=== PATIENT | female | born 1950 | race Caucasian/White ===

== ENCOUNTER 2021-03-21 08:54 | Outpatient (REF) | payer BC, SELFPAY ==
[2021-03-21 11:34] LABS: Glucose Urine UA NEG (NEG); Leukocyte Esterase Urine NEG (NEG); Nitrite Urine NEG (NEG); Urine Blood NEG (NEG); Urine Ketones NEG (NEG); Urine Protein NEG (NEG-TRACE)
[2021-03-21 11:38] LABS: Hematocrit 40.7 % (37-47); Hemoglobin 13.4 g/dl (12.0-16.0); Mean Corpuscular HGB Conc 32.9 g/dl (31.0-35.0); Mean Corpuscular Hemoglobin 30.2 pg (27.0-33.0); Mean Corpuscular Volume 91.9 fL (80-98); Mean Platelet Volume 9.6 fL (9.4-12.3); Platelet Count 258 X10*3/uL (160-400); Red Blood Count 4.43 X10*6/uL (4.20-5.50); Red Cell Distribution Width 13.7 % (11.0-16.0)
[2021-03-21 11:39] LABS: Appearance Urine CLEAR; Color Urine YELLOW
[2021-03-21 11:50] LABS: Alanine Aminotransferase 11 U/L (0-31); Albumin Level 3.9 g/dL (3.5-5.0); Alkaline Phosphatase 64 U/L (39-117); Anion Gap 12 (12-20); Aspartate Amino Transferase 16 U/L (5-31); Bilirubin Total 0.5 mg/dL (0.0-1.0); Blood Urea Nitrogen 19 mg/dL (9-16); Calcium 9.3 mg/dL (8.4-10.2); Carbon Dioxide 27 mmol/L (22-29); Chloride 104 mmol/L (96-108); Cholesterol 229 mg/dL; Estimated Glomerular Filt Rate > 60; Glucose Fasting 89 mg/dL (60-99); HDL Cholesterol 101 mg/dL; LDL Cholesterol Calculated 118 mg/dl; Potassium 4.6 mmol/L (3.3-5.1); Sodium 138 mmol/L (135-145); Total Protein 6.9 g/dL (6.5-8.0); Triglycerides 53 mg/dL
[2021-03-21 12:03] LABS: TSH reflex Free T4 0.93 uIU/mL (0.32-4.0)
[2021-03-21 13:17] LABS: RBC Urine 0 /HPF (0); Squamous Epithelial Cell Urine 1+ /LPF; WBC Urine 0 /HPF (0-4)
== END 2021-03-21 08:55 | disposition home or self-care (01) ==
LOC: HO.HMGCLDS 08:54
PROVIDERS: PCP Internal Medicine; Visit Provider Internal Medicine
DX: E78.5 Hyperlipidemia, unspecified (principal); I10 Essential (primary) hypertension
CPT/HCPCS: 36415; 80053; 80061; 81001; 84443; 85027

== ENCOUNTER 2021-11-25 07:19 | Outpatient (REF) | payer BC, SELFPAY ==
--- NOTE | ~2021-11-25 | MM_ITS ---
EXAMINATION: MM SCREENING DIGITAL BREAST TOMOSYNTHESIS, BILATERAL CLINICAL INFORMATION: Screening. Asymptomatic. The lifetime risk of breast cancer based on the Tyrer-Cuzick Model is 3%. COMPARISON: Mammography: 09/14/2017, 09/20/2013 TECHNIQUE: Digital breast tomosynthesis is performed in both the craniocaudal and mediolateral oblique views along with computer-aided detection (CAD). Synthesized 2D images are generated from the tomosynthesis. FINDINGS: There are scattered areas of fibroglandular density (ACR BI-RADS breast composition Category b). There are no significant masses, abnormal calcifications, or other abnormalities. Parenchymal pattern is similar to prior studies. There is no developing density or architectural abnormality. The axilla and skin contours are unremarkable. No significant changes. MM/MM tomosynthesis screening BI IMPRESSION: No mammographic evidence of malignancy. ASSESSMENT: BI-RADS 1: Negative RECOMMENDATION: Routine annual mammography screening. This patient's information was entered into a reminder system with a target due date for their next mammogram.
== END 2021-11-25 07:20 | disposition home or self-care (01) ==
LOC: HO.MAMMO 07:19
PROVIDERS: PCP Internal Medicine; Visit Provider Internal Medicine
DX: Z12.31 Encounter for screening mammogram for malignant neoplasm of breast (principal)
CPT/HCPCS: 77063; 77067

== ENCOUNTER 2022-03-06 08:37 | Outpatient (REF) | payer BC, SELFPAY ==
[2022-03-06 12:00] LABS: Hematocrit 39.5 % (37.0-47.0); Mean Corpuscular HGB Conc 32.9 g/dl (31.0-35.0); Mean Corpuscular Hemoglobin 30.2 pg (27.0-33.0); Mean Corpuscular Volume 91.6 fL (80.0-98.0); Mean Platelet Volume 9.7 fL (9.4-12.3); Platelet Count 265 X10*3/uL (160-400); Red Blood Count 4.31 X10*6/uL (4.20-5.50); Red Cell Distribution Width 14.1 % (11.0-16.0); White Blood Count 6.1 X10*3/uL (4.8-10.8)
[2022-03-06 12:03] LABS: Alanine Aminotransferase 14 U/L (0-31); Albumin Level 4.2 g/dL (3.5-5.0); Alkaline Phosphatase 69 U/L (39-117); Anion Gap 14 (12-20); Aspartate Amino Transferase 20 U/L (5-31); Bilirubin Total 0.7 mg/dL (0.0-1.0); Blood Urea Nitrogen 19 mg/dL (9-16); Calcium 9.3 mg/dL (8.4-10.2); Carbon Dioxide 23 mmol/L (22-29); Chloride 100 mmol/L (96-108); Cholesterol 253 mg/dL; Estimated Glomerular Filt Rate > 60; Glucose Fasting 103 mg/dL (60-99); HDL Cholesterol 118 mg/dL; LDL Cholesterol Calculated 125 mg/dl; Potassium 4.4 mmol/L (3.3-5.1); Sodium 133 mmol/L (135-145); Total Protein 7.3 g/dL (6.5-8.0); Triglycerides 53 mg/dL
[2022-03-06 12:05] LABS: TSH reflex Free T4 1.78 uIU/mL (0.32-4.0); Vitamin D 25-OH Total 6.9 ng/mL (>30)
== END 2022-03-06 08:38 | disposition home or self-care (01) ==
LOC: HO.HMGCLDS 08:37
PROVIDERS: PCP Internal Medicine; Visit Provider Internal Medicine
DX: Z00.00 Encounter for general adult medical examination without abnormal findings (principal); I10 Essential (primary) hypertension; E78.5 Hyperlipidemia, unspecified
CPT/HCPCS: 36415; 80053; 80061; 82306; 84443; 85027

== ENCOUNTER 2022-05-01 07:42 | Outpatient (REF) | payer BC, SELFPAY ==
[2022-05-01 11:57] LABS: Anion Gap 13 (12-20); Blood Urea Nitrogen 24 mg/dL (9-16); Calcium 9.8 mg/dL (8.4-10.2); Carbon Dioxide 24 mmol/L (22-29); Chloride 102 mmol/L (96-108); Estimated Glomerular Filt Rate > 60; Glucose Random 100 mg/dL (60-115); Potassium 5.1 mmol/L (3.3-5.1); Sodium 134 mmol/L (135-145)
[2022-05-01 12:01] LABS: Vitamin D 25-OH Total 37.4 ng/mL (>30)
== END 2022-05-01 07:43 | disposition home or self-care (01) ==
LOC: HO.HMGCLDS 07:42
PROVIDERS: PCP Internal Medicine; Visit Provider Internal Medicine
DX: E55.9 Vitamin D deficiency, unspecified (principal); I10 Essential (primary) hypertension
CPT/HCPCS: 36415; 80048; 82306

== ENCOUNTER 2022-05-06 13:23 | Outpatient (REF) | payer BC, SELFPAY ==
--- NOTE | ~2022-05-06 | MM_ITS ---
EXAMINATION: BONE DENSITOMETRY CLINICAL INDICATION: Age-related osteoporosis without current pathological fracture. COMPARISON: Baseline BD dated 07/21/2017. TECHNIQUE: Using a [employer] DXA System (software version: 13.1) manufactured by [employer], dual-energy x-ray absorptiometry was performed of the lumbar spine and left hip. The images are of good technical quality. Summary results are attached. FINDINGS: AP SPINE L1-L2 (excluding L3 and L4): The data of L1-L4 has been changed to exclude the L3 and L4 vertebral bodies, because degenerative sclerosis at these levels may cause overestimation of lumbar spine density. Current: BMD 0.980 g/cm2, Z-score -0.1, T-score -1.5, osteopenia, 3.0% decrease from baseline (<5% change is not significant). Baseline: BMD 1.010 g/cm2. LEFT FEMUR, NECK: Current: BMD 0.705 g/cm2, Z-score -0.8, T-score -2.4, osteopenia. Baseline: BMD 0.786 g/cm2. LEFT FEMUR, TOTAL: Current: BMD 0.760 g/cm2, Z-score -0.6, T-score -2.0, osteopenia, 7.5% decrease from baseline (<5% change is not significant). Baseline: BMD 0.822 g/cm2. IDENTIFIED RISK FACTORS: Early menopause, secondary osteoporosis, height loss. HISTORY OF FRACTURE: None listed. MEDICATIONS: Vitamin D. MM/XR DEXA axial skeleton IMPRESSION: 1. DIAGNOSIS: Osteopenia based on the lowest T-score value of -2.4 in the femoral neck applying World Health Organization criteria. 2. 10-YEAR FRACTURE RISK PREDICTION, FRAX: Major osteoporotic fracture (clinical spine, forearm, hip or shoulder) 14.1%. Hip fracture 3.5%. 3. Treatment Recommendations: NOF guidelines recommend consideration for treatment in postmenopausal women and men age 50 and older presenting with the following: -A hip or vertebral (clinical or morphometric) fracture. -T-score less than or equal to -2.5 at the femoral neck or spine after appropriate evaluation to exclude secondary causes. -Low bone mass at the hip or spine and a 10-year fracture probability by FRAX of greater than or equal to 3% for hip fracture or greater than or equal to 20% for major osteoporotic fracture based on the [place] adapted WHO algorithm. 4. Other Recommendations: All treatment decisions require clinical judgment and consideration of individual patient factors, including patient preferences, comorbidities, previous drug use, risk factors not captured in the FRAX model (e.g. frailty, falls, vitamin D deficiency, increased bone turnover, interval significant decline in bone density) and possible under or overestimation of fracture risk by FRAX. Additional medical evaluation for secondary cause of low bone mineral density may be appropriate. FUTURE SCAN RECOMMENDATION: People with diagnosed cases of osteoporosis or at high risk for fracture should have regular bone mineral density tests. For patients eligible for Medicare, routine testing is allowed once every 2 years. The testing frequency can be increased to one year for patients who have rapidly progressing disease, those who are receiving or discontinuing medical therapy to restore bone mass, or have additional risk factors.
== END 2022-05-06 13:24 | disposition home or self-care (01) ==
LOC: HO.MAMMO 13:23
PROVIDERS: PCP Internal Medicine; Visit Provider Internal Medicine
DX: Z13.820 Encounter for screening for osteoporosis (principal); Z78.0 Asymptomatic menopausal state; M85.80 Other specified disorders of bone density and structure, unspecified site; M81.0 Age-related osteoporosis without current pathological fracture
CPT/HCPCS: 77080

== ENCOUNTER 2024-01-09 06:39 | Outpatient (REF) | payer MEDICARE, SELFPAY ==
[2024-01-09 11:00] LABS: MANUAL DIFF FLAG NO
[2024-01-09 11:04] LABS: Basophils Absolute Auto 0.1 X10*3/uL (0.0-0.2); Basophils Percent Auto 1.1 % (0-2); Eosinophils Absolute Auto 0.1 X10*3/uL (0.0-0.4); Eosinophils Percent Auto 2.5 % (0-4); Hematocrit 40.3 % (37.0-47.0); Hemoglobin 13.4 g/dl (12.0-16.0); Imm Gran Abs Auto 0.01 X10*3/uL (0.00-0.03); Imm Gran Pct Auto 0.2 % (0.0-0.4); Lymphocytes Absolute Auto 1.3 X10*3/uL (1.2-4.9); Lymphocytes Percent Auto 30.6 % (20-40); Mean Corpuscular HGB Conc 33.3 g/dl (31.0-35.0); Mean Corpuscular Hemoglobin 30.4 pg (27.0-33.0); Mean Corpuscular Volume 91.4 fL (80.0-98.0); Mean Platelet Volume 10.4 fL (9.4-12.3); Monocytes Absolute Auto 0.4 X10*3/uL (0.1-1.2); Monocytes Percent Auto 9.9 % (2-11); Neutrophils Absolute Auto 2.4 x10*3/uL (2.0-8.3); Neutrophils Percent Auto 55.7 % (45-73); Platelet Count 231 X10*3/uL (160-400); Red Blood Count 4.41 X10*6/uL (4.20-5.50); Red Cell Distribution Width 13.4 % (11.0-16.0); White Blood Count 4.4 X10*3/uL (4.8-10.8)
[2024-01-09 11:25] LABS: Alanine Aminotransferase 12 U/L (0-31); Albumin Level 3.8 g/dL (3.5-5.0); Alkaline Phosphatase 60 U/L (39-117); Anion Gap 11 (12-20); Aspartate Amino Transferase 16 U/L (5-31); Bilirubin Total 0.4 mg/dL (0.0-1.0); Blood Urea Nitrogen 15 mg/dL (9-16); Calcium 9.3 mg/dL (8.4-10.2); Carbon Dioxide 27 mmol/L (22-29); Chloride 102 mmol/L (96-108); Cholesterol 282 mg/dL (<200); Estimated Glomerular Filt Rate > 60; Glucose Fasting 93 mg/dL (60-99); HDL Cholesterol 107 mg/dL (>40); LDL Cholesterol Calculated 162 mg/dL (<100); Potassium 4.3 mmol/L (3.3-5.1); Sodium 136 mmol/L (135-145); Total Protein 7.1 g/dL (6.5-8.0); Triglycerides 65 mg/dL (<150)
[2024-01-09 11:41] LABS: TSH reflex Free T4 1.72 uIU/mL (0.32-4.0); Vitamin D 25-OH Total 20.5 ng/mL (>30)
== END 2024-01-09 06:40 | disposition home or self-care (01) ==
LOC: HO.HMGCLDS 06:39
PROVIDERS: PCP Internal Medicine; Visit Provider Internal Medicine
DX: E55.9 Vitamin D deficiency, unspecified (principal); E78.5 Hyperlipidemia, unspecified; I10 Essential (primary) hypertension
CPT/HCPCS: 36415; 80053; 80061; 82306; 84443; 85025

== ENCOUNTER 2024-01-14 08:54 | Outpatient (AMB) | payer MEDICARE, SELFPAY ==
[2024-01-14 08:56] VITALS: BP 136/84; PULSE 75; O2SAT 96; BMI 28.4
--- NOTE | 2024-01-14 08:56 | MHC.PC.OV ---
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 Avila Gerber, Katie Farias, Fazal Mcfadden and colleagues, with an educational bonnie from [employer]. Physical exam (Primary Care) Tobacco/Smoking Status: Tobacco use Status Tobacco use date assessed 03/11/22 03/11/22 12:02 Patient Tobacco Use Status Never used Tobacco 03/11/22 12:02 e-Cigarette/Vaping Use Never Used 03/11/22 12:02 Thrive Assessment: Date of Thrive Assessment Date Thrive assessed 03/11/22 03/11/22 12:02 Coding
--- NOTE | 2024-01-14 08:57 | AM.OFFVISMDC ---
Intake Vital Signs 01/14/24 08:56 Height 5 ft 2.5 in Weight 158 lb BMI 28.4 BP 136/84 Blood Pressure Location Rt brachial Position Sitting Pulse 75 Pulse Source Pulse Oximeter Pulse Oximetry (%) 96 Oxygen Delivery Method Room Air Intake Visit Reasons: AWV Allergies No Known Allergies Allergy (Verified 01/14/24 08:57) Medication List - Last Reconciled 01/14/24 by Kami Hicks MD lisinopril 10 mg PO DAILY HPI AWV HPI Details Patient presents for annual visit. She stopped taking statin and blood pressure medication a year ago and her daughter who is a nurse has been checking her blood pressure with the readings between 125/80 or less. Patient denies chest pain shortness for breath and has been physically active at this twice a day with a brisk walking. She complains of right buttock pain when sitting for longer time on and off for few months. Patient denies any pain radiating to right lower extremity, weakness in extremities change in bowel or bladder function. Initiated the conversation about Advanced Directives. Advanced Directives help? patients prepare for current and future decisions about their medical treatment? and place of care. Discussed with patient that it is a process where a patients? current condition and prognosis are reviewed, their wishes for information? regarding their illness are elicited, and likely medical dilemmas are presented? and options discussed. The form can be amended as needed, reviewed yearly and? make changes as needed IPPE/AWV ? year old presents? for her ? Annual? Wellness Visit, initial visit.? Medical / Social History Reviewed? Past Medical History ?Yes? . ? [place]? of Care / Care Team list updated ?Yes . ? Surgical/Hospitalization? History ?Yes . ? Current Medications? (including OTC and supplements) ?Yes . ? Family History ?Yes? . ? Tobacco? Control form ?Yes . ? AUDIT-C (Alcohol use) form? ?Yes . ? Illicit drug use in Social? History ?Yes . ? Current diagnosis of? depression? ?No ? Appropriate PHQ2/PHQ9? completed ?Yes . ? Data entered by ?Medical? [employer] and reviewed by provider ? Fall Risk ? Fall? History? Have you had any falls with? injury in the past year? ?No . ? Have you had two or more? falls in the past year? ?No . ? Fall Risk Assessment: ?No? falls in the past year . ? HRA filled out by? the patient, reviewed by Provider and scanned. ? IPPE/AWV ? Balance? Romberg? ?Yes . ? Tandem? walk ?Yes . ? Walk and? Turn ?Yes . ? Rise from? sit to stand ?Yes . ?Vision? Corrective? lens ?Yes ? Vision? screen ? Up-to-date, has an appointment [] for vision? screening and glaucoma screening ?Hearing? Whisper? test ?pass .? Initiated the conversation about Advanced Directives. Advanced Directives help? patients prepare for current and future decisions about their medical treatment? and place of care. Discussed with patient that it is a process where a patients? current condition and prognosis are reviewed, their wishes for information? regarding their illness are elicited, and likely medical dilemmas are presented? and options discussed. The form can be amended as needed, reviewed yearly and? make changes as needed Written? Plan?Completed. See Patient? Documents. [facility], [facility] Medical History (Updated 01/14/24 @ 09:47 by Kami Hicks MD) Osteoporosis Vitamin D deficiency Annual physical exam Normal Pap smear Hyperlipemia HTN (hypertension) Surgical History H/O colonoscopy Family History (Updated 01/14/24 @ 09:02 by Maria Esther Graves [facility]) Father No problems noted. Mother No problems noted. 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 (1st repeat determines score. Make sure they can repeat all three): object 1, object 2 and object 3 Attention & Calculation (CHOOSE ONE) Spell WORLD backwards (DLROW): 5 letters Recall Ask patient to repeat the 3 items from question #3.: object 1, object 2 and object 3 Language Show patient a wristwatch & ask what it is. Repeat for pencil.: watch and pencil Ask the patient to repeat the phrase 'No ifs, ands, or buts' after you.: correct Ask the patient to 'take a piece of paper with their right hand' 'fold paper in half' 'place paper on floor': take paper in right hand, fold paper in half and place paper on floor Print the sentence 'CLOSE YOUR EYES' on a piece. If patient actually closes eyes then score.: followed written direction Give patient a blank piece of paper & ask to write a sentence. Score if it contains a noun & verb.: sentence contains subject and verb Score Score: 29 Review of Systems Const All systems reviewed & are unremarkable except as noted in HPI and below Reports no additional complaints Eyes Reports no additional complaints ENT Reports no additional complaints Card Reports no additional complaints Resp Reports no additional complaints GI Reports no additional complaints Reports no additional complaints Physical Exam Vital Signs: Last Vital Signs Pulse 75 01/14/24 08:56 BP 136/84 01/14/24 08:56 Pulse Ox 96 01/14/24 08:56 Oxygen Delivery Method Room Air 01/14/24 08:56 BMI result Body Mass Index 28.4 Const General: no acute distress HEENT Head: Yes normal to inspection Ears: hearing grossly normal bilaterally Neck Neck: Yes no lymphadenopathy and Yes supple Resp Effort & Inspection: normal respiratory effort Auscultation: clear to auscultation bilaterally Cardio Rhythm: regular rhythm Heart sounds: S1 normal heart sound present and S2 normal heart sound present GI Inspection: Yes normal to inspection Palpation (GI): Soft to palpation Percussion: Yes normal to percussion Auscultation: normal bowel sounds Extrem Other: There is a weaker to palpation left radial artery pulse General: Yes no clubbing, cyanosis or edema Assessment & Plan Assessment & Plan (1) Hyperlipemia: Code(s): E78.5 - Hyperlipidemia, unspecified Plan: Patient will restart atorvastatin 20 mg a day and have lipid profile in 2 months (2) HTN (hypertension): Code(s): I10 - Essential (primary) hypertension Plan: For hypertension she will restart lisinopril 10 mg, low-sodium diet regular physical activity discussed with the patient. Follow-up in 2 months (3) Vitamin D deficiency: Code(s): E55.9 - Vitamin D deficiency, unspecified Plan: Start vitamin-D supplement 2000 units and monitor the level (4) Piriformis syndrome of right side: Code(s): G57.01 - Lesion of sciatic nerve, right lower limb Plan: Referred to physical therapy (5) Radial artery stenosis: Comment: DECREASED LEFT RADIAL ARTERY PULSE Code(s): I77.1 - Stricture of artery Plan: Obtain left upper extremity Doppler to evaluate for radial artery stenosis (6) Annual physical exam: Comment: Negative Cologuard 11/21, mammogram scheduled 01/23, patient declined immunization Code(s): Z00.00 - Encounter for general adult medical examination without abnormal findings Plan: Well-balanced diet regular physical activity discussed with the patient Orders: Orders Lipid Panel 2 Months E55.9 - Vitamin D deficiency, unspecified, E78.5 - Hyperlipidemia, unspecified, I10 - Essential (primary) hypertension, M85.80 - Other specified disorders of bone density and structure, unspecified site MM screening mammo BI Today Z12.31 - Encounter for screening mammogram for malignant neoplasm of breast US arterial duplex UE LT Today I77.1 - Stricture of artery Comprehensive [place]. Panel Fast 2 Months E55.9 - Vitamin D deficiency, unspecified, E78.5 - Hyperlipidemia, unspecified, I10 - Essential (primary) hypertension, M85.80 - Other specified disorders of bone density and structure, unspecified site Vitamin D 25-OH Total 2 Months E55.9 - Vitamin D deficiency, unspecified, E78.5 - Hyperlipidemia, unspecified, I10 - Essential (primary) hypertension, M85.80 - Other specified disorders of bone density and structure, unspecified site PT Evaluation and Treatment Today G57.01 - Lesion of sciatic nerve, right lower limb Medications: New lisinopril 10 mg PO DAILY 90 tabs 0RF atorvastatin 20 mg PO BEDTIME 90 tabs 0RF Coding Level of Care Code Medicare Subsequent (G0439) Diagnoses Hyperlipemia E78.5 HTN (hypertension) I10 Vitamin D deficiency E55.9 Piriformis syndrome of right side G57.01 Radial artery stenosis I77.1 Annual physical exam Z00.00 CPT Codes Advance Care Planning - Time spent: 1-15 minutes, not on file ([id number]) Advance Care Planning Advance Care Planning discussion: Exists, not on file Forms completed: Health Care Proxy Time spent: 1-15 minutes, not on file
== END 2024-01-14 09:39 | disposition home or self-care (01) ==
PROVIDERS: PCP Internal Medicine; Visit Provider Internal Medicine
DX: Z00.00 Encounter for general adult medical examination without abnormal findings (principal); E78.5 Hyperlipidemia, unspecified; I77.1 Stricture of artery; I10 Essential (primary) hypertension; E55.9 Vitamin D deficiency, unspecified; G57.01 Lesion of sciatic nerve, right lower limb
CPT/HCPCS: 1124F; G0402; G0439

== ENCOUNTER 2024-02-09 09:39 | Outpatient (REF) | payer MEDICARE, SELFPAY ==
--- NOTE | ~2024-02-09 | US_ITS ---
EXAMINATION: Noninvasive assessment of the left upper extremity with ARTERIAL DUPLEX. CLINICAL INFORMATION: Stricture of the artery TECHNIQUE: Duplex Doppler techniques with waveform analysis and measurement of velocities in the left subclavian, axillary, brachial, radial and ulnar arteries were performed. COMPARISON: None FINDINGS: DIRECT DUPLEX DOPPLER FINDINGS: LEFT ARM: Subclavian artery (proximal): 113 cm/s, phasicity: Triphasic Subclavian artery (mid): 111 cm/s, phasicity: Triphasic Subclavian artery (distal): 91.8 cm/s, phasicity: Triphasic Axillary artery: 122 cm/s, phasicity: Biphasic Brachial artery (proximal): 98.2 cm/s, phasicity: Biphasic Brachial artery (mid): 144 cm/s, phasicity: Biphasic Brachial artery (distal): 115 cm/s, phasicity: Biphasic Radial artery: 68.5 cm/s, phasicity: Biphasic Ulnar artery: 55.3 cm/s, phasicity:Biphasic US/US arterial duplex UE LT IMPRESSION: Normal duplex arterial ultrasound of the left upper extremity
== END 2024-02-09 09:40 | disposition home or self-care (01) ==
LOC: HO.US 09:39
PROVIDERS: PCP Internal Medicine; Visit Provider Internal Medicine
DX: I77.1 Stricture of artery (principal)
CPT/HCPCS: 93931

== ENCOUNTER 2024-02-15 11:30 | Outpatient (REF) | payer MEDICARE, SELFPAY ==
--- NOTE | ~2024-02-15 | MM_ITS ---
EXAMINATION: MM SCREENING DIGITAL BREAST TOMOSYNTHESIS, BILATERAL CLINICAL INFORMATION: Screening. Asymptomatic. COMPARISON: Mammography: 11/25/2021, 09/14/2017, 09/20/2013 TECHNIQUE: Digital breast tomosynthesis is performed in both the craniocaudal and mediolateral oblique views along with computer-aided detection (CAD). Synthesized 2D images are generated from the tomosynthesis. FINDINGS: There are scattered areas of fibroglandular density (ACR BI-RADS breast composition Category b). There are bilateral vascular calcifications. There are no suspicious masses, suspicious grouped calcifications, or areas of architectural distortion in either breast. The parenchymal pattern is stable from prior exams. MM/MM tomosynthesis screening BI IMPRESSION: No mammographic evidence of malignancy. ASSESSMENT: BI-RADS BI-RADS 2 - Benign Findings RECOMMENDATION: Routine annual mammography screening. 1 year F/U This examination should not preclude the clinical evaluation of a suspicious palpable abnormality. This patient's information was entered into a reminder system with a target due date for their next mammogram.
== END 2024-02-15 11:31 | disposition home or self-care (01) ==
LOC: HO.MAMMO 11:30
PROVIDERS: PCP Internal Medicine; Visit Provider Internal Medicine
DX: Z12.31 Encounter for screening mammogram for malignant neoplasm of breast (principal)
CPT/HCPCS: 77063; 77067

== ENCOUNTER → 2024-02-15 11:45 | Outpatient (BNV) | payer MEDICARE, SELFPAY | PROVIDERS: PCP Internal Medicine; Visit Provider Radiology Diagnostic Radiology | DX: Z12.31 Encounter for screening mammogram for malignant neoplasm of breast (principal) | CPT/HCPCS: 77063; 77067 ==

== ENCOUNTER 2024-04-02 06:36 | Outpatient (REF) | payer MEDICARE, SELFPAY ==
[2024-04-02 12:09] LABS: Alanine Aminotransferase 15 U/L (0-31); Albumin Level 4.2 g/dL (3.5-5.0); Alkaline Phosphatase 59 U/L (39-117); Anion Gap 14 (12-20); Aspartate Amino Transferase 19 U/L (5-31); Bilirubin Total 0.5 mg/dL (0.0-1.0); Blood Urea Nitrogen 22 mg/dL (9-16); Calcium 9.8 mg/dL (8.4-10.2); Carbon Dioxide 24 mmol/L (22-29); Chloride 101 mmol/L (96-108); Cholesterol 229 mg/dL (<200); Estimated Glomerular Filt Rate > 60; Glucose Fasting 91 mg/dL (60-99); HDL Cholesterol 101 mg/dL (>40); LDL Cholesterol Calculated 115 mg/dL (<100); Potassium 4.3 mmol/L (3.3-5.1); Sodium 135 mmol/L (135-145); Total Protein 7.7 g/dL (6.5-8.0); Triglycerides 68 mg/dL (<150)
[2024-04-02 12:27] LABS: Vitamin D 25-OH Total 47.3 ng/mL (>30)
== END 2024-04-02 06:37 | disposition home or self-care (01) ==
LOC: HO.HMGCLDS 06:36
PROVIDERS: PCP Internal Medicine; Visit Provider Internal Medicine
DX: E78.5 Hyperlipidemia, unspecified (principal); I10 Essential (primary) hypertension; E55.9 Vitamin D deficiency, unspecified; M85.80 Other specified disorders of bone density and structure, unspecified site
CPT/HCPCS: 36415; 80053; 80061; 82306

== ENCOUNTER 2024-04-05 11:01 | Outpatient (AMB) | payer MEDICARE, SELFPAY ==
--- NOTE | 2024-04-05 11:17 | MHC.PC.OV ---
Vital Signs 04/05/24 11:18 Height 5 ft 2.5 in Weight 158 lb BMI 28.4 BP 134/66 Blood Pressure Location Rt brachial Position Sitting Pulse 73 Pulse Source Pulse Oximeter Pulse Oximetry (%) 99 Oxygen Delivery Method Room Air Intake Visit Reasons: 3M F/U US Intake Note: Pt is here today for 3 months follow up on labs. Allergies No Known Allergies Allergy (Verified 04/05/24 11:18) Medication List - Last Reconciled 04/05/24 by Kami Hicks MD atorvastatin 20 mg PO BEDTIME lisinopril 20 mg PO DAILY Tobacco use date assessed: 04/05/24 Fall risk assessment: No Falls in past year Last assessed Fall Risk: 04/05/24 Dental Screening Dental Screen Date: 04/05/24 Did you have a dental visit in the last 12 months?: Yes Did you have a dental problem in the last 6 months where you did not have access to dental care?: No Was dental information given to patient?: Patient has dentist HPI 3M F/U US HPI Details PATIENT PRESENTS FOR THE FOLLOW-UP OF HYPERTENSION HYPERLIPIDEMIA [facility] Medical History (Updated 04/05/24 @ 11:55 by Kami Hicks MD) Vitamin D deficiency Annual physical exam Normal Pap smear Hyperlipemia HTN (hypertension) Surgical History H/O colonoscopy Family History Father No problems noted. Mother No problems noted. 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 1. Little interest or pleasure in doing things: not at all 2. Feeling down, depressed, or hopeless: not at all 3. Trouble falling or staying asleep, or sleeping too much: not at all 4. Feeling tired or having little energy: not at all 5. Poor appetite or overeating: not at all 6. Feeling bad about yourself - or that you are a failure or have let yourself or your family down: not at all 7. Trouble concentrating on things, such as reading the newspaper or watching television: not at all 8. Moving or speaking so slowly that other people could have noticed. Or the opposite - being so fidgety or restless that you have been moving around a lot more than usual: not at all 9. Thoughts that you would be better off or of hurting yourself in some way: not at all Total score: 0 Depression Screening Interpretation: Negative Depression Screening Done: Yes Source: Developed by Drs. Avila Gerber, Katie Farias, Fazal Mcfadden and colleagues, with an educational bonnie from [employer]. Thrive Questionnaire Date Thrive assessed: 04/05/24 I am a: Patient What is your living situation today?: I have a steady place to live Within the past 12 months, did the food you bought not last and you didn't have the money to get more?: Never true Within the past 12 months, did you worry whether your food would run out before you got money to buy more?: Never true Do you have trouble paying for medicines?: No Do you have trouble getting transportation to medical appointments?: No Do you have trouble paying your heating and electricity bill?: No Do you have trouble taking care of your child, family member or friend?: No Do you have trouble with day-to-day activities such as bathing, preparing meals, shopping, managing finances, etc.?: No Are you currently unemployed and looking for a job?: No Are you interested in more education?: No Please select the resources that you would like help with: None THRIVE Score: 0 AUDIT C Alcohol Use Questionnaire (AUDIT-C) 1. How often do you have a drink containing alcohol?: 2-3 times a week 2. How many drinks containing alcohol do you have on a typical day when you are drinking?: 3 or 4 3. How often do you have six or more drinks on one occasion?: Less than monthly Total Score: 5 GEOVANNI-7 AMB Questionnaire GEOVANNI-7 Date GEOVANNI - 7 assessed: 04/05/24 Feeling nervous, anxious, or on edge: 0 = Not at all Not being able to stop or control worryin = Not at all Worrying too much about different things: 0 = Not at all Trouble relaxin = Not at all Being so restless that it is hard to sit still: 0 = Not at all Becoming easily annoyed or irritable: 0 = Not at all Feeling afraid as if something awful might happen: 0 = Not at all Total GEOVANNI-7 score (0-4 normal; 5-9 mild; 10-14 moderate; 15-21 severe): 0 Source: Developed by Drs. Avila Gerber, Katie Farias, Fazal Mcfadden and colleagues, with an educational bonnie from [email or web address]. Review of Systems Const All systems reviewed & are unremarkable except as noted in HPI and below ENT Reports no additional complaints Card Reports no additional complaints Resp Reports no additional complaints GI Reports no additional complaints Physical exam (Primary Care) Vital Signs: Last Vital Signs Pulse 73 04/05/24 11:18 BP 134/66 04/05/24 11:18 Pulse Ox 99 04/05/24 11:18 Oxygen Delivery Method Room Air 04/05/24 11:18 BMI result Body Mass Index 28.4 Tobacco/Smoking Status: Tobacco use Status Tobacco use date assessed 04/05/24 04/05/24 11:18 Patient Tobacco Use Status Never used Tobacco 04/05/24 11:18 e-Cigarette/Vaping Use Never Used 04/05/24 11:18 PHQ-9: PHQ-9 Score PHQ-9: Total score 0 04/05/24 11:28 Depression Screening Interpretation: Negative Thrive Assessment: Date of Thrive Assessment Date Thrive assessed 04/05/24 04/05/24 11:28 Const General: no acute distress HENMT Throat: Yes posterior oropharynx normal Eyes General: appearance normal, both eyes and all related structures Neck Neck: Yes supple Resp Effort & Inspection: normal respiratory effort Auscultation: clear to auscultation bilaterally Cardio Rhythm: regular rhythm Heart sounds: S1 normal heart sound present and S2 normal heart sound present GI Inspection: Yes normal to inspection Assessment and Plan Assessment & Plan (1) HTN (hypertension): Code(s): I10 - Essential (primary) hypertension Plan: Increase lisinopril to 20 mg a day check BMP in 2 weeks follow-up in 2 months (2) Osteopenia: Comment: DEXA 04/2022. T score -2.4 L femur neck, unchanged from 2019, recheck in 3 yrs Code(s): M85.80 - Other specified disorders of bone density and structure, unspecified site Plan: Continue vitamin-D supplement and weight-bearing exercises (3) Hyperlipemia: Code(s): E78.5 - Hyperlipidemia, unspecified Plan: Continue statin Orders: Orders Basic Metabolic Panel 2 Weeks I10 - Essential (primary) hypertension Medications: New lisinopril 20 mg PO DAILY 90 tabs 1RF Coding Level of Care Code Est Pt Level 4 (15463) Diagnoses HTN (hypertension) I10 Osteopenia M85.80 Hyperlipemia E78.5
[2024-04-05 11:18] VITALS: BP 134/66; PULSE 73; O2SAT 99; BMI 28.4
== END 2024-04-05 11:57 | disposition home or self-care (01) ==
PROVIDERS: PCP Internal Medicine; Visit Provider Internal Medicine
DX: I10 Essential (primary) hypertension (principal); M85.80 Other specified disorders of bone density and structure, unspecified site; E78.5 Hyperlipidemia, unspecified
CPT/HCPCS: 99214

== ENCOUNTER 2024-05-16 09:08 | Outpatient (REF) | payer MEDICARE, SELFPAY ==
[2024-05-16 10:40] LABS: Anion Gap 11 (12-20); Blood Urea Nitrogen 26 mg/dL (9-16); Carbon Dioxide 27 mmol/L (22-29); Chloride 100 mmol/L (96-108); Estimated Glomerular Filt Rate > 60; Glucose Random 109 mg/dL (60-115); Potassium 4.5 mmol/L (3.3-5.1); Sodium 133 mmol/L (135-145)
== END 2024-05-16 09:09 | disposition home or self-care (01) ==
LOC: HO.HMGCLDS 09:08
PROVIDERS: PCP Internal Medicine; Visit Provider Internal Medicine
DX: I10 Essential (primary) hypertension (principal)
CPT/HCPCS: 36415; 80048

== ENCOUNTER 2024-06-14 10:00 | Outpatient (AMB) | payer MEDICARE, SELFPAY ==
--- NOTE | 2024-06-14 10:07 | MHC.PC.OV ---
Vital Signs 06/14/24 10:09 Height 5 ft 2.5 in Weight 156 lb BMI 28.1 BP 138/82 Blood Pressure Location Rt brachial Position Standing Pulse 72 Pulse Source Pulse Oximeter Pulse Oximetry (%) 97 Oxygen Delivery Method Room Air Intake Visit Reasons: 2 month follow up Intake Note: Pt is here today for 2 months follow up visit. Allergies No Known Allergies Allergy (Verified 06/14/24 10:11) Medication List - Last Reconciled 06/14/24 by Kami Hicks MD atorvastatin 20 mg PO BEDTIME lisinopril 30 mg PO DAILY Tobacco use date assessed: 06/14/24 Fall risk assessment: No Falls in past year Last assessed Fall Risk: 06/14/24 Dental Screening Dental Screen Date: 04/05/24 HPI 2 month follow up HPI Details Patient presents for the follow-up on hypertension and hyperlipidemia. [facility] Medical History Vitamin D deficiency Annual physical exam Normal Pap smear Hyperlipemia HTN (hypertension) Surgical History H/O colonoscopy Family History Father No problems noted. Mother No problems noted. Social History Housing: House Alcohol intake: current Alcohol intake frequency: a few times a week Patient Tobacco Use Status: Never used Tobacco e-Cigarette/Vaping Use: Never Used Second Hand Smoke Exposure: No service: No Current occupational status: employed Current occupation: Caterer Current occupational exposures/hazards: No Cognitive needs: No Hearing needs: No Vision needs: No Questionnaire PHQ-9 Over the last 2 weeks, how often have you been bothered by any of the following problems? 1. Little interest or pleasure in doing things: not at all 2. Feeling down, depressed, or hopeless: not at all 3. Trouble falling or staying asleep, or sleeping too much: not at all 4. Feeling tired or having little energy: not at all 5. Poor appetite or overeating: not at all 6. Feeling bad about yourself - or that you are a failure or have let yourself or your family down: not at all 7. Trouble concentrating on things, such as reading the newspaper or watching television: not at all 8. Moving or speaking so slowly that other people could have noticed. Or the opposite - being so fidgety or restless that you have been moving around a lot more than usual: not at all 9. Thoughts that you would be better off or of hurting yourself in some way: not at all Total score: 0 Depression Screening Interpretation: Negative Depression Screening Done: Yes Source: Developed by Drs. Avila Gerber, Ktaie Farias, Fazal Mcfadden and colleagues, with an educational bonnie from [employer]. Thrive Questionnaire Date Thrive assessed: 06/14/24 I am a: Patient What is your living situation today?: I have a steady place to live Within the past 12 months, did the food you bought not last and you didn't have the money to get more?: Never true Within the past 12 months, did you worry whether your food would run out before you got money to buy more?: Never true Do you have trouble paying for medicines?: No Do you have trouble getting transportation to medical appointments?: No Do you have trouble paying your heating and electricity bill?: No Do you have trouble taking care of your child, family member or friend?: No Do you have trouble with day-to-day activities such as bathing, preparing meals, shopping, managing finances, etc.?: No Are you currently unemployed and looking for a job?: No Are you interested in more education?: No Please select the resources that you would like help with: Housing/Correction Currently or been in a relationship where the following occur: No concerns reported THRIVE Score: 0 AUDIT C Alcohol Use Questionnaire (AUDIT-C) 1. How often do you have a drink containing alcohol?: 2-3 times a week 2. How many drinks containing alcohol do you have on a typical day when you are drinking?: 1 or 2 3. How often do you have six or more drinks on one occasion?: Less than monthly Total Score: 4 GEOVANNI-7 AMB Questionnaire GEOVANNI-7 Date GEOVANNI - 7 assessed: 04/05/24 Feeling nervous, anxious, or on edge: 0 = Not at all Not being able to stop or control worryin = Not at all Worrying too much about different things: 0 = Not at all Trouble relaxin = Not at all Being so restless that it is hard to sit still: 0 = Not at all Becoming easily annoyed or irritable: 0 = Not at all Feeling afraid as if something awful might happen: 0 = Not at all Total GEOVANNI-7 score (0-4 normal; 5-9 mild; 10-14 moderate; 15-21 severe): 0 Source: Developed by Drs. Avila Gerber, Katie Farias, Fazal Mcfadden and colleagues, with an educational bonnie from [employer]. Review of Systems Const All systems reviewed & are unremarkable except as noted in HPI and below Eyes Reports no additional complaints ENT Reports no additional complaints Card Reports no additional complaints Resp Reports no additional complaints GI Reports no additional complaints Reports no additional complaints Physical exam (Primary Care) Vital Signs: Last Vital Signs Pulse 72 06/14/24 10:09 Pulse Ox 97 06/14/24 10:09 Oxygen Delivery Method Room Air 06/14/24 10:09 BMI result Body Mass Index 28.1 Tobacco/Smoking Status: Tobacco use Status Tobacco use date assessed 06/14/24 06/14/24 10:12 Patient Tobacco Use Status Never used Tobacco 06/14/24 10:08 e-Cigarette/Vaping Use Never Used 06/14/24 10:08 PHQ-9: PHQ-9 Score PHQ-9: Total score 0 06/14/24 10:12 Depression Screening Interpretation: Negative Thrive Assessment: Date of Thrive Assessment Date Thrive assessed 06/14/24 06/14/24 10:12 Currently or been in a relationship where the following occur: No concerns reported Const General: no acute distress HENMT Head: Yes normal to inspection Eyes General: appearance normal, both eyes and all related structures Neck Neck: Yes supple Resp Effort & Inspection: normal respiratory effort Auscultation: clear to auscultation bilaterally Cardio Rhythm: regular rhythm Heart sounds: S1 normal heart sound present and S2 normal heart sound present GI Inspection: Yes normal to inspection Palpation (GI): Soft to palpation Percussion: Yes normal to percussion Assessment and Plan Assessment & Plan (1) HTN (hypertension): Code(s): I10 - Essential (primary) hypertension Plan: increase Lisinopril to 30 mg, check BMP in 3 weeks, (2) Hyperlipemia: Code(s): E78.5 - Hyperlipidemia, unspecified Plan: Continue atorvastatin follow-up in 2 months Orders: Orders Basic Metabolic Panel 3 Weeks I10 - Essential (primary) hypertension Medications: New lisinopril 30 mg PO DAILY 90 tabs 0RF Discontinued lisinopril Discontinued Reason: Doctor's Order 20 mg PO DAILY 90 tabs 1RF Patient Instructions: Continue atorvastatin Coding Level of Care Code Est Pt Level 4 (78249) Diagnoses HTN (hypertension) I10 Hyperlipemia E78.5
[2024-06-14 10:09] VITALS: BP 138/82; PULSE 72; O2SAT 97; BMI 28.1
== END 2024-06-14 10:52 | disposition home or self-care (01) ==
PROVIDERS: PCP Internal Medicine; Visit Provider Internal Medicine
DX: I10 Essential (primary) hypertension (principal); E78.5 Hyperlipidemia, unspecified
CPT/HCPCS: 99214

== ENCOUNTER 2024-07-12 10:41 | Outpatient (AMB) | payer MEDICARE, SELFPAY ==
[2024-07-12 10:43] VITALS: BP 136/80; PULSE 68; O2SAT 95; BMI 28.6
--- NOTE | 2024-07-12 10:43 | A.OFFPC_ITS ---
Vital Signs 07/12/24 10:43 Height 5 ft 2.5 in Weight 159 lb BMI 28.6 BP 136/80 Blood Pressure Location Lt brachial Position Sitting Pulse 68 Pulse Source Pulse Oximeter Pulse Oximetry (%) 95 Oxygen Delivery Method Room Air Intake Visit Reasons: 3-4 week follow up Allergies No Known Allergies Allergy (Verified 07/12/24 10:44) Medication List - Last Reconciled 07/12/24 by Kami Hicks MD atorvastatin 20 mg PO BEDTIME lisinopril 30 mg PO DAILY Tobacco use date assessed: 07/12/24 Dental Screening Dental Screen Date: 04/05/24 HPI 3-4 week follow up HPI Details PATIENT PRESENTS FOR THE FOLLOW-UP ON HYPERTENSION HYPERLIPIDEMIA CONTROLLED ON CURRENT MEDICATIONS. ON LICENSE OF [facility] Medical History Vitamin D deficiency Annual physical exam Normal Pap smear Hyperlipemia HTN (hypertension) Surgical History H/O colonoscopy Family History Father No problems noted. Mother No problems noted. Social History Housing: House Alcohol intake: current Alcohol intake frequency: a few times a week Patient Tobacco Use Status: Never used Tobacco e-Cigarette/Vaping Use: Never Used Second Hand Smoke Exposure: No service: No Current occupational status: employed Current occupation: Caterer Current occupational exposures/hazards: No Cognitive needs: No Hearing needs: No Vision needs: No Questionnaire PHQ-9 Over the last 2 weeks, how often have you been bothered by any of the following problems? 1. Little interest or pleasure in doing things: not at all 2. Feeling down, depressed, or hopeless: not at all 3. Trouble falling or staying asleep, or sleeping too much: not at all 4. Feeling tired or having little energy: not at all 5. Poor appetite or overeating: not at all 6. Feeling bad about yourself - or that you are a failure or have let yourself or your family down: not at all 7. Trouble concentrating on things, such as reading the newspaper or watching television: not at all 8. Moving or speaking so slowly that other people could have noticed. Or the opposite - being so fidgety or restless that you have been moving around a lot more than usual: not at all 9. Thoughts that you would be better off or of hurting yourself in some way: not at all Total score: 0 Depression Screening Interpretation: Negative Depression Screening Done: Yes Source: Developed by Drs. Avila Gerber, Katie Farias, Fazal Mcfadden and colleagues, with an educational bonnie from [employer]. Thrive Questionnaire Date Thrive assessed: 06/14/24 I am a: Patient What is your living situation today?: I have a steady place to live Within the past 12 months, did the food you bought not last and you didn't have the money to get more?: Never true Within the past 12 months, did you worry whether your food would run out before you got money to buy more?: Never true Do you have trouble paying for medicines?: No Do you have trouble getting transportation to medical appointments?: No Do you have trouble paying your heating and electricity bill?: No Do you have trouble taking care of your child, family member or friend?: No Do you have trouble with day-to-day activities such as bathing, preparing meals, shopping, managing finances, etc.?: No Are you currently unemployed and looking for a job?: No Are you interested in more education?: No Please select the resources that you would like help with: None Currently or been in a relationship where the following occur: No concerns reported THRIVE Score: 0 AUDIT C Alcohol Use Questionnaire (AUDIT-C) 1. How often do you have a drink containing alcohol?: 2-3 times a week 2. How many drinks containing alcohol do you have on a typical day when you are drinking?: 1 or 2 3. How often do you have six or more drinks on one occasion?: Less than monthly Total Score: 4 GEOVANNI-7 AMB Questionnaire GEOVANNI-7 Date GEOVANNI - 7 assessed: 04/05/24 Feeling nervous, anxious, or on edge: 0 = Not at all Not being able to stop or control worryin = Not at all Worrying too much about different things: 0 = Not at all Trouble relaxin = Not at all Being so restless that it is hard to sit still: 0 = Not at all Becoming easily annoyed or irritable: 0 = Not at all Feeling afraid as if something awful might happen: 0 = Not at all Total GEOVANNI-7 score (0-4 normal; 5-9 mild; 10-14 moderate; 15-21 severe): 0 Source: Developed by Drs. Avila Gerber, Katie Farias, Fazal Mcfadden and colleagues, with an educational bonnie from [employer]. Review of Systems Const All systems reviewed & are unremarkable except as noted in HPI and below Eyes Reports no additional complaints ENT Reports no additional complaints Card Reports no additional complaints Resp Reports no additional complaints GI Reports no additional complaints Reports no additional complaints Physical exam (Primary Care) Vital Signs: Last Vital Signs Pulse 68 07/12/24 10:43 BP 136/80 07/12/24 10:43 Pulse Ox 95 07/12/24 10:43 Oxygen Delivery Method Room Air 07/12/24 10:43 BMI result Body Mass Index 28.6 Tobacco/Smoking Status: Tobacco use Status Tobacco use date assessed 07/12/24 07/12/24 10:46 Patient Tobacco Use Status Never used Tobacco 07/12/24 10:46 e-Cigarette/Vaping Use Never Used 07/12/24 10:46 PHQ-9: PHQ-9 Score PHQ-9: Total score 0 07/12/24 10:46 Depression Screening Interpretation: Negative Thrive Assessment: Date of Thrive Assessment Date Thrive assessed 06/14/24 07/12/24 10:46 Currently or been in a relationship where the following occur: No concerns reported Const General: comfortable HENMT Mouth: Normal oral and palatal mucosa present Eyes General: appearance normal, both eyes and all related structures Resp Effort & Inspection: normal respiratory effort Auscultation: clear to auscultation bilaterally Cardio Rhythm: regular rhythm Heart sounds: S1 normal heart sound present and S2 normal heart sound present GI Inspection: Yes normal to inspection Palpation (GI): Soft to palpation Percussion: Yes normal to percussion Auscultation: normal bowel sounds Assessment and Plan Assessment & Plan (1) HTN (hypertension): Code(s): I10 - Essential (primary) hypertension Plan: Continue lisinopril, check basic metabolic panel (2) Hyperlipemia: Code(s): E78.5 - Hyperlipidemia, unspecified Plan: Continue statin, follow-up for physical in 6 months with a fasting labs before (3) Annual physical exam: Comment: Negative Cologuard 11/21, mammogram scheduled 01/23, patient declined immunization Code(s): Z00.00 - Encounter for general adult medical examination without abnormal findings Orders: Orders Lipid Panel 6 Months E78.5 - Hyperlipidemia, unspecified, I10 - Essential (primary) hypertension, Z00.00 - Encounter for general adult medical examination without abnormal findings Complete Blood Count Auto Diff 6 Months E78.5 - Hyperlipidemia, unspecified, I10 - Essential (primary) hypertension, Z00.00 - Encounter for general adult medical examination without abnormal findings Comprehensive [place]. Panel Fast 6 Months E78.5 - Hyperlipidemia, unspecified, I10 - Essential (primary) hypertension, Z00.00 - Encounter for general adult medical examination without abnormal findings TSH reflex Free T4 6 Months E78.5 - Hyperlipidemia, unspecified, I10 - Essential (primary) hypertension, Z00.00 - Encounter for general adult medical examination without abnormal findings Vitamin D 25-OH Total 6 Months E78.5 - Hyperlipidemia, unspecified, I10 - Essential (primary) hypertension, Z00.00 - Encounter for general adult medical examination without abnormal findings Medications: Refilled lisinopril 30 mg PO DAILY 90 tabs 2RF Coding Level of Care Code Est Pt Level 3 (18640) Diagnoses HTN (hypertension) I10 Hyperlipemia E78.5 Annual physical exam Z00.00
== END 2024-07-12 12:14 | disposition home or self-care (01) ==
PROVIDERS: PCP Internal Medicine; Visit Provider Internal Medicine
DX: I10 Essential (primary) hypertension (principal); E78.5 Hyperlipidemia, unspecified; Z00.00 Encounter for general adult medical examination without abnormal findings
CPT/HCPCS: 99213

== ENCOUNTER 2024-09-07 09:39 | Outpatient (AMB) | payer MEDICARE, SELFPAY ==
[2024-09-07 09:40] VITALS: BP 139/88; PULSE 67; O2SAT 97; BMI 28.6
--- NOTE | 2024-09-07 09:40 | MHC.PC.OV ---
Vital Signs 09/07/24 09:40 Height 5 ft 2.5 in Weight 159 lb BMI 28.6 BP 139/88 Blood Pressure Location Rt brachial Position Sitting Pulse 67 Pulse Source Pulse Oximeter Pulse Oximetry (%) 97 Oxygen Delivery Method Room Air Intake Visit Reasons: Hospital follow up Intake Note: Pt is here today for Hospital follow up visit. Allergies No Known Allergies Allergy (Verified 09/07/24 09:45) Medication List - Last Reconciled 09/07/24 by Kami Hicks MD atorvastatin 20 mg PO BEDTIME folic acid 1 mg PO DAILY levetiracetam (Keppra) 500 mg PO BID lidocaine HCl 1 appl mucous membrane TID lisinopril 30 mg PO DAILY pyridoxine (vitamin B6) 50 mg PO DAILY thiamine HCl (vitamin B1) 100 mg PO BID Tobacco use date assessed: 07/12/24 Dental Screening Dental Screen Date: 04/05/24 [facility] Hospital follow up HPI Details Patient presents for the follow-up of hospitalization at [facility] for new onset seizures 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 Patient was started on Keppra and has not had recurrent seizures. Her neuro exam has been none focal. Patient had negative CT of the chest abdomen pelvis for workup of malignancy. Patient has stopped drinking alcohol since the hospitalization. She denies headaches change in vision weakness numbness in extremities change in balance. Patient has been upset about the event and complains of insomnia but no depression. [facility] Medical History (Updated 09/07/24 @ 10:59 by Kami Hicks MD) Vitamin D deficiency Annual physical exam Normal Pap smear Hyperlipemia HTN (hypertension) Surgical History H/O colonoscopy Family History Father No problems noted. Mother No problems noted. Social History Housing: House Alcohol intake: current Alcohol intake frequency: a few times a week Patient Tobacco Use Status: Never used Tobacco e-Cigarette/Vaping Use: Never Used Second Hand Smoke Exposure: No service: No Current occupational status: employed Current occupation: Caterer Current occupational exposures/hazards: No Cognitive needs: No Hearing needs: No Vision needs: No Questionnaire Thrive Questionnaire Date Thrive assessed: 06/14/24 I am a: Patient What is your living situation today?: I have a steady place to live Within the past 12 months, did the food you bought not last and you didn't have the money to get more?: Never true Within the past 12 months, did you worry whether your food would run out before you got money to buy more?: Never true Do you have trouble paying for medicines?: No Do you have trouble getting transportation to medical appointments?: No Do you have trouble paying your heating and electricity bill?: No Do you have trouble taking care of your child, family member or friend?: No Do you have trouble with day-to-day activities such as bathing, preparing meals, shopping, managing finances, etc.?: No Are you currently unemployed and looking for a job?: No Are you interested in more education?: No Please select the resources that you would like help with: None Currently or been in a relationship where the following occur: No concerns reported THRIVE Score: 0 GEOVANNI-7 AMB Questionnaire GEOVANNI-7 Date GEOVANNI - 7 assessed: 04/05/24 Source: Developed by Drs. Avila Gerber, Katie Farias, Fazal Mcfadden and colleagues, with an educational bonnie from [employer]. Physical exam (Primary Care) Vital Signs: Last Vital Signs Pulse 67 09/07/24 09:40 Pulse Ox 97 09/07/24 09:40 Oxygen Delivery Method Room Air 09/07/24 09:40 BMI result Body Mass Index 28.6 Tobacco/Smoking Status: Tobacco use Status Tobacco use date assessed 07/12/24 09/07/24 09:40 Patient Tobacco Use Status Never used Tobacco 09/07/24 09:40 e-Cigarette/Vaping Use Never Used 09/07/24 09:40 Thrive Assessment: Date of Thrive Assessment Date Thrive assessed 06/14/24 09/07/24 09:40 Currently or been in a relationship where the following occur: No concerns reported Const General: no acute distress Orientation/consciousness: patient oriented x3 HENMT Mouth: Normal oral and palatal mucosa present Eyes General: appearance normal, both eyes and all related structures Neck Neck: Yes supple Resp Effort & Inspection: normal respiratory effort Auscultation: clear to auscultation bilaterally Cardio Rhythm: regular rhythm Heart sounds: S1 normal heart sound present and S2 normal heart sound present Neuro General: patient oriented x3 and CN's II-XI intact bilaterally Cognition (Neuro): normal cognition Gait exam (Neuro): Normal gait present Motor exam (neuro): 5/5 motor strength present throughout Coding Level of Care Code Est Pt Level 4 (12846) Diagnoses HTN (hypertension) I10 Hyperlipemia E78.5 Seizure R56.9 Subarachnoid hemorrhage I60.9 Intraparenchymal hemorrhage of brain I61.9 Anxiety F41.9 Assessment & Plan Assessment & Plan (1) HTN (hypertension): Code(s): I10 - Essential (primary) hypertension Category: Medical Plan: Change 30 mg of lisinopril to amlodipine with benazepril 5/40. Patient will have blood pressure check in 2 weeks with the nurse and follow-up in 1 month (2) Hyperlipemia: Code(s): E78.5 - Hyperlipidemia, unspecified Category: Medical Plan: Continue statin (3) Seizure: Comment: Secondary to intraparenchymal hemorrhage of the brain, started on Keppra 07/2024, follow-up with [facility] Neurology Code(s): R56.9 - Unspecified convulsions Category: Medical Plan: Continue Keppra follow-up with Neurology at [facility] (4) Subarachnoid hemorrhage: Comment: Hospitalized at [facility] 07/2024 Code(s): I60.9 - Nontraumatic subarachnoid hemorrhage, unspecified Category: Medical Plan: Follow-up with neurology (5) Intraparenchymal hemorrhage of brain: Comment: [facility] 07/2024, patient needs a repeat MRI in 2-3 months Code(s): I61.9 - Nontraumatic intracerebral hemorrhage, unspecified Category: Medical Plan: Follow-up with neurology, repeat brain MRI in 2-3 months (6) Anxiety: Code(s): F41.9 - Anxiety disorder, unspecified Category: Medical Plan: Start Zoloft 25 mg for the 1st week then increase to 50 mg. Stress management discussed with the patient Medications: New levetiracetam (Keppra) 500 mg PO BID 180 tabs 3RF thiamine HCl (vitamin B1) 100 mg PO BID 180 tabs 0RF amlodipine-benazepril 5-40 mg 1 cap PO DAILY 30 caps 0RF sertraline 1/2 tabl qd x 1 week, 1 tabl qd 50 mg PO DAILY 30 tabs 0RF
== END 2024-09-07 11:02 | disposition home or self-care (01) ==
PROVIDERS: PCP Internal Medicine; Visit Provider Internal Medicine
DX: I10 Essential (primary) hypertension (principal); R56.9 Unspecified convulsions; I60.9 Nontraumatic subarachnoid hemorrhage, unspecified; I61.9 Nontraumatic intracerebral hemorrhage, unspecified; E78.5 Hyperlipidemia, unspecified; F41.9 Anxiety disorder, unspecified

== ENCOUNTER → 2024-09-07 09:39 | Outpatient (BNVA) | payer MEDICARE, SELFPAY | PROVIDERS: PCP Internal Medicine; Visit Provider Internal Medicine | DX: I10 Essential (primary) hypertension (principal); E78.5 Hyperlipidemia, unspecified; R56.9 Unspecified convulsions; I60.9 Nontraumatic subarachnoid hemorrhage, unspecified; I61.9 Nontraumatic intracerebral hemorrhage, unspecified; F41.9 Anxiety disorder, unspecified | CPT/HCPCS: 99212 ==

== ENCOUNTER 2024-09-20 10:49 | Outpatient (AMB) | payer MEDICARE, SELFPAY ==
[2024-09-20 10:58] VITALS: BP 128/86; PULSE 83; O2SAT 95; BMI 28.1
--- NOTE | 2024-09-20 10:58 | MHC.PC.OV ---
Vital Signs 09/20/24 10:58 Height 5 ft 2.5 in Weight 156 lb BMI 28.1 BP 128/86 Blood Pressure Location Lt brachial Position Sitting Pulse 83 Pulse Source Pulse Oximeter Pulse Oximetry (%) 95 Oxygen Delivery Method Room Air Intake Visit Reasons: 2 week follow up Intake Note: Pt is here today for 2 weeks follow up visit. Allergies No Known Allergies Allergy (Verified 09/07/24 09:45) Medication List - Last Reconciled 09/20/24 by Kami Hicks MD amlodipine-benazepril 5-40 mg 1 cap PO DAILY atorvastatin 20 mg PO BEDTIME folic acid 1 mg PO DAILY levetiracetam (Keppra) 500 mg PO BID lidocaine HCl 1 appl mucous membrane TID lisinopril 30 mg PO DAILY pyridoxine (vitamin B6) 50 mg PO DAILY sertraline 50 mg PO DAILY thiamine HCl (vitamin B1) 100 mg PO .qd Tobacco use date assessed: 09/20/24 Dental Screening Dental Screen Date: 04/05/24 HPI 2 week follow up HPI Details Patient presents for the follow-up on hypertension and chronic anxiety improved on sertraline. 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 Patient has an appointment with neurologist. She denies any recurrent seizures, headaches, change in balanced or vision. ON LICENSE OF [facility] Medical History Vitamin D deficiency Annual physical exam Normal Pap smear Hyperlipemia HTN (hypertension) Surgical History H/O colonoscopy Family History Father No problems noted. Mother No problems noted. Social History Housing: House Alcohol intake: current Alcohol intake frequency: a few times a week Patient Tobacco Use Status: Never used Tobacco e-Cigarette/Vaping Use: Never Used Second Hand Smoke Exposure: No service: No Current occupational status: employed Current occupation: Caterer Current occupational exposures/hazards: No Cognitive needs: No Hearing needs: No Vision needs: No Questionnaire Thrive Questionnaire Date Thrive assessed: 06/14/24 I am a: Patient What is your living situation today?: I have a steady place to live Within the past 12 months, did the food you bought not last and you didn't have the money to get more?: Never true Within the past 12 months, did you worry whether your food would run out before you got money to buy more?: Never true Do you have trouble paying for medicines?: No Do you have trouble getting transportation to medical appointments?: No Do you have trouble paying your heating and electricity bill?: No Do you have trouble taking care of your child, family member or friend?: No Do you have trouble with day-to-day activities such as bathing, preparing meals, shopping, managing finances, etc.?: No Are you currently unemployed and looking for a job?: No Are you interested in more education?: No Please select the resources that you would like help with: None Currently or been in a relationship where the following occur: No concerns reported THRIVE Score: 0 GEOVANNI-7 AMB Questionnaire GEOVANNI-7 Date GEOVANNI - 7 assessed: 04/05/24 Source: Developed by Drs. Avila Gerber, Katie Farias, Fazal Mcfadden and colleagues, with an educational bonnie from [employer]. Review of Systems Const All systems reviewed & are unremarkable except as noted in HPI and below ENT Reports no additional complaints Card Reports no additional complaints Resp Reports no additional complaints GI Reports no additional complaints Reports no additional complaints Physical exam (Primary Care) Vital Signs: Last Vital Signs Pulse 83 09/20/24 10:58 BP 128/86 09/20/24 10:58 Pulse Ox 95 09/20/24 10:58 Oxygen Delivery Method Room Air 09/20/24 10:58 BMI result Body Mass Index 28.1 Tobacco/Smoking Status: Tobacco use Status Tobacco use date assessed 09/20/24 09/20/24 11:22 Patient Tobacco Use Status Never used Tobacco 09/20/24 11:22 e-Cigarette/Vaping Use Never Used 09/20/24 10:58 Thrive Assessment: Date of Thrive Assessment Date Thrive assessed 06/14/24 09/20/24 10:58 Currently or been in a relationship where the following occur: No concerns reported Const General: no acute distress HENMT Ears: hearing grossly normal bilaterally Face and sinus: Yes normal facial exam Neck Neck: Yes supple Resp Effort & Inspection: normal respiratory effort Auscultation: clear to auscultation bilaterally Cardio Rhythm: regular rhythm Heart sounds: S1 normal heart sound present and S2 normal heart sound present Neuro General: CN's II-XI intact bilaterally Coding Level of Care Code Est Pt Level 4 (39396) Diagnoses Seizure R56.9 Anxiety F41.9 HTN (hypertension) I10 Assessment & Plan Assessment & Plan (1) Seizure: Comment: Secondary to intraparenchymal hemorrhage of the brain, started on Keppra 07/2024, follow-up with [facility] Neurology Code(s): R56.9 - Unspecified convulsions Category: Medical Plan: Continue Keppra follow-up with Neurology (2) Anxiety: Code(s): F41.9 - Anxiety disorder, unspecified Category: Medical Plan: Continue sertraline (3) HTN (hypertension): Code(s): I10 - Essential (primary) hypertension Category: Medical Plan: Increase amlodipine with benazepril to 10/40. Continue other physical activity low-sodium diet follow-up in 2 months Medications: New amlodipine-benazepril 10-40 mg 1 cap PO DAILY 90 caps 0RF Changed From thiamine HCl (vitamin B1) 100 mg PO BID 180 tabs 0RF To thiamine HCl (vitamin B1) 100 mg PO .qd 90 tabs 0RF From sertraline 1/2 tabl qd x 1 week, 1 tabl qd 50 mg PO DAILY 30 tabs 0RF To sertraline 50 mg PO DAILY 90 tabs 1RF Refilled thiamine HCl (vitamin B1) 100 mg PO .qd 90 tabs 0RF Discontinued lisinopril Discontinued Reason: Doctor's Order 30 mg PO DAILY 90 tabs 2RF amlodipine-benazepril 5-40 mg Discontinued Reason: Doctor's Order 1 cap PO DAILY 30 caps 0RF
== END 2024-09-20 12:11 | disposition home or self-care (01) ==
PROVIDERS: PCP Internal Medicine; Visit Provider Internal Medicine
DX: R56.9 Unspecified convulsions (principal); F41.9 Anxiety disorder, unspecified; I10 Essential (primary) hypertension

== ENCOUNTER → 2024-09-20 10:49 | Outpatient (BNVA) | payer MEDICARE, SELFPAY | PROVIDERS: PCP Internal Medicine; Visit Provider Internal Medicine | DX: R56.9 Unspecified convulsions (principal); F41.9 Anxiety disorder, unspecified; I10 Essential (primary) hypertension | CPT/HCPCS: 99212 ==

== ENCOUNTER 2024-10-05 10:41 | Outpatient (AMB) | payer MEDICARE, SELFPAY ==
[2024-10-05 11:00] VITALS: BP 110/72; PULSE 82; O2SAT 96; BMI 27.5
--- NOTE | 2024-10-05 11:00 | A.OFFPC_ITS ---
Vital Signs 10/05/24 11:00 Height 5 ft 2.5 in Weight 153 lb BMI 27.5 BP 110/72 Blood Pressure Location Lt brachial Position Sitting Pulse 82 Pulse Source Pulse Oximeter Pulse Oximetry (%) 96 Oxygen Delivery Method Room Air Intake Visit Reasons: 1 month follow up Intake Note: Pt is here today for 1 month follow up visit. Allergies No Known Allergies Allergy (Verified 10/05/24 11:02) Medication List - Last Reconciled 10/05/24 by Kami Hicks MD amlodipine-benazepril 10-40 mg 1 cap PO DAILY atorvastatin 20 mg PO BEDTIME folic acid 1 mg PO DAILY folic acid 1 mg PO DAILY levetiracetam (Keppra) 500 mg PO BID lidocaine HCl 1 appl mucous membrane TID sertraline 50 mg PO DAILY thiamine HCl (vitamin B1) 100 mg PO .qd Tobacco use date assessed: 10/05/24 Dental Screening Dental Screen Date: 04/05/24 HPI 1 month follow up HPI Details Patient presents for the follow-up on hypertension hyperlipidemia chronic anxiety stable on current medications [facility] Medical History Vitamin D deficiency Annual physical exam Normal Pap smear Hyperlipemia HTN (hypertension) Surgical History H/O colonoscopy Family History Father No problems noted. Mother No problems noted. Social History Housing: House Alcohol intake: current Alcohol intake frequency: a few times a week Patient Tobacco Use Status: Never used Tobacco e-Cigarette/Vaping Use: Never Used Second Hand Smoke Exposure: No service: No Current occupational status: employed Current occupation: Caterer Current occupational exposures/hazards: No Cognitive needs: No Hearing needs: No Vision needs: No Questionnaire Thrive Questionnaire Date Thrive assessed: 06/14/24 I am a: Patient What is your living situation today?: I have a steady place to live Within the past 12 months, did the food you bought not last and you didn't have the money to get more?: Never true Within the past 12 months, did you worry whether your food would run out before you got money to buy more?: Never true Do you have trouble paying for medicines?: No Do you have trouble getting transportation to medical appointments?: No Do you have trouble paying your heating and electricity bill?: No Do you have trouble taking care of your child, family member or friend?: No Do you have trouble with day-to-day activities such as bathing, preparing meals, shopping, managing finances, etc.?: No Are you currently unemployed and looking for a job?: No Are you interested in more education?: No Please select the resources that you would like help with: None Currently or been in a relationship where the following occur: No concerns reported THRIVE Score: 0 GEOVANNI-7 AMB Questionnaire GEOVANNI-7 Date GEOVANNI - 7 assessed: 04/05/24 Source: Developed by Drs. Avila Gerber, Katie Farias, Fazal Mcfadden and colleagues, with an educational bonnie from [employer]. Review of Systems Const All systems reviewed & are unremarkable except as noted in HPI and below ENT Reports no additional complaints Resp Reports no additional complaints GI Reports no additional complaints Reports no additional complaints Physical exam (Primary Care) Vital Signs: Last Vital Signs Pulse 82 10/05/24 11:00 BP 110/72 10/05/24 11:00 Pulse Ox 96 10/05/24 11:00 Oxygen Delivery Method Room Air 10/05/24 11:00 BMI result Body Mass Index 27.5 Tobacco/Smoking Status: Tobacco use Status Tobacco use date assessed 10/05/24 10/05/24 11:02 Patient Tobacco Use Status Never used Tobacco 10/05/24 11:02 e-Cigarette/Vaping Use Never Used 10/05/24 11:02 Thrive Assessment: Date of Thrive Assessment Date Thrive assessed 06/14/24 10/05/24 11:02 Currently or been in a relationship where the following occur: No concerns reported Const General: no acute distress Eyes General: appearance normal, both eyes and all related structures Resp Effort & Inspection: normal respiratory effort Auscultation: clear to auscultation bilaterally Cardio Rhythm: regular rhythm Heart sounds: S1 normal heart sound present and S2 normal heart sound present Coding Level of Care Code Est Pt Level 4 (51045) Diagnoses Hyperlipemia E78.5 HTN (hypertension) I10 Seizure R56.9 Subarachnoid hemorrhage I60.9 Assessment & Plan Assessment & Plan (1) Hyperlipemia: Code(s): E78.5 - Hyperlipidemia, unspecified Category: Medical Plan: Continue statin (2) HTN (hypertension): Code(s): I10 - Essential (primary) hypertension Category: Medical Plan: Continue current medications patient will return for fasting blood work (3) Seizure: Comment: Secondary to intraparenchymal hemorrhage of the brain, started on Keppra 07/2024, follow-up with [facility] Neurology Code(s): R56.9 - Unspecified convulsions Category: Medical Plan: Continue Keppra (4) Subarachnoid hemorrhage: Comment: Hospitalized at [facility] 07/2024 Code(s): I60.9 - Nontraumatic subarachnoid hemorrhage, unspecified Category: Medical Plan: Follow-up with neurology will have repeat MRI of the brain Orders: Orders Lipid Panel Today E78.5 - Hyperlipidemia, unspecified, I10 - Essential (primary) hypertension Comprehensive [place]. Panel Fast Today E78.5 - Hyperlipidemia, unspecified, I10 - Essential (primary) hypertension Medications: New folic acid 1 mg PO DAILY 90 tabs 1RF Refilled atorvastatin 20 mg PO BEDTIME 90 tabs 3RF
== END 2024-10-05 11:53 | disposition home or self-care (01) ==
LOC: HO.HMCC 10:42
PROVIDERS: PCP Internal Medicine; Visit Provider Internal Medicine
DX: E78.5 Hyperlipidemia, unspecified (principal); I10 Essential (primary) hypertension; R56.9 Unspecified convulsions; I60.9 Nontraumatic subarachnoid hemorrhage, unspecified

== ENCOUNTER → 2024-10-05 10:41 | Outpatient (BNVA) | payer MEDICARE, SELFPAY | PROVIDERS: PCP Internal Medicine; Visit Provider Internal Medicine | DX: E78.5 Hyperlipidemia, unspecified (principal); I10 Essential (primary) hypertension; R56.9 Unspecified convulsions; I60.9 Nontraumatic subarachnoid hemorrhage, unspecified | CPT/HCPCS: 99212 ==

== ENCOUNTER 2024-10-06 07:43 | Outpatient (REF) | payer MEDICARE, SELFPAY ==
[2024-10-06 10:58] LABS: Albumin Level 4.1 g/dL (3.5-5.0); Alkaline Phosphatase 62 U/L (39-117); Anion Gap 12 (12-20); Aspartate Amino Transferase 27 U/L (5-31); Bilirubin Total 0.4 mg/dL (0.0-1.0); Blood Urea Nitrogen 10 mg/dL (9-16); Carbon Dioxide 26 mmol/L (22-29); Chloride 101 mmol/L (96-108); Cholesterol 230 mg/dL (<200); Estimated Glomerular Filt Rate > 60; Glucose Fasting 94 mg/dL (60-99); HDL Cholesterol 86 mg/dL (>40); LDL Cholesterol Calculated 124 mg/dL (<100); Potassium 4.2 mmol/L (3.3-5.1); Sodium 135 mmol/L (135-145); Total Protein 7.3 g/dL (6.5-8.0); Triglycerides 101 mg/dL (<150)
[2024-10-06 11:18] LABS: Alanine Aminotransferase 36 U/L (0-31)
== END 2024-10-06 07:44 | disposition home or self-care (01) ==
LOC: HO.HMGCLDS 07:43
PROVIDERS: PCP Internal Medicine; Visit Provider Internal Medicine
DX: E78.5 Hyperlipidemia, unspecified (principal); I10 Essential (primary) hypertension
CPT/HCPCS: 36415; 80053; 80061

== ENCOUNTER 2025-01-10 06:24 | Outpatient (REF) | payer MEDICARE, SELFPAY ==
[2025-01-10 10:18] LABS: MANUAL DIFF FLAG NO
[2025-01-10 10:27] LABS: Basophils Percent Auto 0.6 % (0-2); Eosinophils Absolute Auto 0.2 X10*3/uL (0.0-0.4); Eosinophils Percent Auto 3.1 % (0-4); Hematocrit 38.8 % (37.0-47.0); Imm Gran Abs Auto 0.02 X10*3/uL (0.00-0.03); Imm Gran Pct Auto 0.4 % (0.0-0.4); Lymphocytes Absolute Auto 1.6 X10*3/uL (1.2-4.9); Lymphocytes Percent Auto 33.4 % (20-40); Mean Corpuscular HGB Conc 33.5 g/dl (31.0-35.0); Mean Corpuscular Hemoglobin 30.7 pg (27.0-33.0); Mean Corpuscular Volume 91.7 fL (80.0-98.0); Mean Platelet Volume 9.8 fL (9.4-12.3); Monocytes Absolute Auto 0.4 X10*3/uL (0.1-1.2); Monocytes Percent Auto 7.7 % (2-11); Neutrophils Absolute Auto 2.6 x10*3/uL (2.0-8.3); Neutrophils Percent Auto 54.8 % (45-73); Platelet Count 230 X10*3/uL (160-400); Red Blood Count 4.23 X10*6/uL (4.20-5.50); Red Cell Distribution Width 13.7 % (11.0-16.0); White Blood Count 4.8 X10*3/uL (4.8-10.8)
[2025-01-10 10:49] LABS: Alanine Aminotransferase 16 U/L (0-31); Albumin Level 4.2 g/dL (3.5-5.0); Alkaline Phosphatase 65 U/L (39-117); Anion Gap 9 (12-20); Aspartate Amino Transferase 20 U/L (5-31); Bilirubin Total 0.4 mg/dL (0.0-1.0); Blood Urea Nitrogen 19 mg/dL (9-16); Calcium 9.6 mg/dL (8.4-10.2); Carbon Dioxide 29 mmol/L (22-29); Chloride 107 mmol/L (96-108); Cholesterol 208 mg/dL (<200); Estimated Glomerular Filt Rate > 60; Glucose Fasting 86 mg/dL (60-99); HDL Cholesterol 75 mg/dL (>40); LDL Cholesterol Calculated 118 mg/dL (<100); Sodium 141 mmol/L (135-145); Total Protein 7.7 g/dL (6.5-8.0); Triglycerides 79 mg/dL (<150)
[2025-01-10 11:08] LABS: TSH reflex Free T4 2.21 uIU/mL (0.32-4.0); Vitamin D 25-OH Total 26.6 ng/mL (>30)
== END 2025-01-10 06:25 | disposition home or self-care (01) ==
LOC: HO.HMGCLDS 06:24
PROVIDERS: PCP Internal Medicine; Visit Provider Internal Medicine
DX: Z00.00 Encounter for general adult medical examination without abnormal findings (principal); I10 Essential (primary) hypertension; E78.5 Hyperlipidemia, unspecified
CPT/HCPCS: 36415; 80053; 80061; 82306; 84443; 85025

== ENCOUNTER 2025-01-16 09:36 | Outpatient (AMB) | payer MEDICARE, SELFPAY ==
[2025-01-16 09:53] VITALS: BP 110/68; PULSE 73; RESP 18; TEMP 36.8; O2SAT 96; BMI 27.0
--- NOTE | 2025-01-16 09:53 | A.OFFVIS_ITS ---
Intake Vital Signs 01/16/25 09:53 Height 5 ft 2.5 in Weight 150 lb BMI 27.0 BP 110/68 Blood Pressure Location Lt brachial Position Sitting Respiration 18 Pulse 73 Pulse Source Pulse Oximeter Temp 98.2 F Temp Source Oral Pulse Oximetry (%) 96 Oxygen Delivery Method Room Air Intake Visit Reasons: SWV 438 Allergies No Known Allergies Allergy (Verified 01/16/25 10:03) Medication List - Last Reconciled 01/16/25 by Kami Hicks MD amlodipine-benazepril 10-40 mg 1 cap PO DAILY atorvastatin 40 mg PO DAILY folic acid 1 mg PO DAILY levetiracetam (Keppra) 500 mg PO BID sertraline 50 mg PO DAILY thiamine HCl (vitamin B1) 100 mg PO DAILY HPI SWV [id number] HPI Details Initiated the conversation about Advanced Directives. Advanced Directives help? patients prepare for current and future decisions about their medical treatment? and place of care. Discussed with patient that it is a process where a patients? current condition and prognosis are reviewed, their wishes for information? regarding their illness are elicited, and likely medical dilemmas are presented? and options discussed. The form can be amended as needed, reviewed yearly and? make changes as needed IPPE/AWV ? year old presents? for her ? Annual? Wellness Visit, initial visit.? Medical / Social History Reviewed? Past Medical History ?Yes? . ? [place]? of Care / Care Team list updated ?Yes . ? Surgical/Hospitalization? History ?Yes . ? Current Medications? (including OTC and supplements) ?Yes . ? Family History ?Yes? . ? Tobacco? Control form ?Yes . ? AUDIT-C (Alcohol use) form? ?Yes . ? Illicit drug use in Social? History ?Yes . ? Current diagnosis of? depression? ?No ? Appropriate PHQ2/PHQ9? completed ?Yes . ? Data entered by ?Medical? Groundskeeper Porter and reviewed by provider ? Fall Risk ? Fall? History? Have you had any falls with? injury in the past year? ?No . ? Have you had two or more? falls in the past year? ?No . ? Fall Risk Assessment: ?No? falls in the past year . ? HRA filled out by? the patient, reviewed by Provider and scanned. ? IPPE/AWV ? Balance? [place]? ?Yes . ? Tandem? walk ?Yes . ? Walk and? Turn ?Yes . ? Rise from? sit to stand ?Yes . ?Vision? Corrective? lens ?Yes ? Vision? screen ? Up-to-date, has an appointment [] for vision? screening and glaucoma screening ?Hearing? Whisper? test ?pass .? Initiated the conversation about Advanced Directives. Advanced Directives help? patients prepare for current and future decisions about their medical treatment? and place of care. Discussed with patient that it is a process where a patients? current condition and prognosis are reviewed, their wishes for information? regarding their illness are elicited, and likely medical dilemmas are presented? and options discussed. The form can be amended as needed, reviewed yearly and? make changes as needed Written? Plan?Completed. See Patient? Documents. [facility] Medical History Vitamin D deficiency Annual physical exam Normal Pap smear Hyperlipemia HTN (hypertension) Surgical History H/O colonoscopy Family History Father No problems noted. Mother No problems noted. Social History Housing: House Alcohol intake: current Alcohol intake frequency: a few times a week Patient Tobacco Use Status: Never used Tobacco e-Cigarette/Vaping Use: Never Used Second Hand Smoke Exposure: No service: No Current occupational status: employed Current occupation: Caterer Current occupational exposures/hazards: No Cognitive needs: No Hearing needs: No Vision needs: No Questionnaire Medicare Wellness Checkup [age] What gender do you identify with?: female During the past 4 weeks, how much have you been bothered by emotional problems such as feeling anxious, depressed, irritable, sad or downhearted, and blue?: not at all During the past 4 weeks, has your physical & emotional health limited your social activities with family, friends, neighbors, or groups?: not at all During the past 4 weeks, how much bodily pain have you generally had?: very mild pain During the past 4 weeks, was someone available to help you if you needed & wanted help?: yes, as much as I wanted During the past 4 weeks, what was the hardest physical activity you could do for at least 2 minutes?: heavy Can you get to places out of walking distance without help? (For eg., can you travel alone on buses, taxis or drive your car?): Yes Can you go shopping for groceries or clothes without someone's help?: Yes Can you prepare your own meals?: Yes Can you do your housework without help?: Yes Because of any health problems, do you need the help of another person with your personal care needs such as eating, bathing, dressing or getting around the house?: No Can you handle your own money without help?: Yes During the past 4 weeks, how would you rate your health in general?: excellent During the past 4 weeks how have things been going for you?: very well; could hardly better Are you having difficulties driving your car?: no Do you always fasten your seat belt when you are in a car?: yes, usually During past 4 weeks, have you been bothered by the following: never: Sexual problems?, Trouble eating well?, Teeth or denture problems?, Problems using the telephone? and Tiredness or fatigue? and seldom: Falling or dizzy when standing up Have you fallen 2 or more times in the past year?: No Are you afraid of falling?: No Are you a smoker?: no During the past 4 weeks, how many drinks of wine, beer, or other alcoholic beverages did you have?: no alcohol at all Do you exercise for about 20 minutes 3 or more times a week?: yes, most of the time Have you been given information to help with the following?: no: Hazards in your house that might hurt you? and no: Keeping track of your medications? How often do you have trouble taking medicines the way you have been told to take them?: I always take medicine as prescribed How confident are you that you can control & manage most of your health problems?: very confident What is your race?: White Mini Mental State Exam (MMSE) Orientation What is the (year) (season) (date) (day) (month)?: year, season, date, day and month Where are we (state) (county) (town or city) (hospital) (floor)?: state, county, town or city, hospital/clinic and floor Registration Name of 3 unrelated objects clearly and slowly, then ask patient to repeat all 3 of them. (1st repeat determines score. Make sure they can repeat all three): object 1, object 2 and object 3 Attention & Calculation (CHOOSE ONE) Spell WORLD backwards (DLROW): 5 letters Recall Ask patient to repeat the 3 items from question #3.: object 1, object 2 and object 3 Language Show patient a wristwatch & ask what it is. Repeat for pencil.: watch and pencil Ask the patient to repeat the phrase 'No ifs, ands, or buts' after you.: correct Ask the patient to 'take a piece of paper with their right hand' 'fold paper in half' 'place paper on floor': take paper in right hand, fold paper in half and place paper on floor Print the sentence 'CLOSE YOUR EYES' on a piece. If patient actually closes eyes then score.: followed written direction Give patient a blank piece of paper & ask to write a sentence. Score if it contains a noun & verb.: sentence contains subject and verb Score Score: 29 PHQ-9 Over the last 2 weeks, how often have you been bothered by any of the following problems? 1. Little interest or pleasure in doing things: not at all 2. Feeling down, depressed, or hopeless: not at all 3. Trouble falling or staying asleep, or sleeping too much: not at all 4. Feeling tired or having little energy: not at all 5. Poor appetite or overeating: not at all 6. Feeling bad about yourself - or that you are a failure or have let yourself or your family down: not at all 7. Trouble concentrating on things, such as reading the newspaper or watching television: not at all 8. Moving or speaking so slowly that other people could have noticed. Or the opp osite - being so fidgety or restless that you have been moving around a lot more than usual: not at all 9. Thoughts that you would be better off or of hurting yourself in some way: not at all Total score: 0 Depression Screening Interpretation: Negative Depression Screening Done: Yes 88334 - PHQ-9 Billing: Yes Source: Developed by Drs. Avila Gerber, Katie Farias, Fazal Mcfadden and colleagues, with an educational bonnie from [employer]. Review of Systems Const All systems reviewed & are unremarkable except as noted in HPI and below Eyes Reports no additional complaints ENT Reports no additional complaints Card Reports no additional complaints Resp Reports no additional complaints GI Reports no additional complaints Reports no additional complaints Physical Exam Vital Signs: Last Vital Signs Temp 98.2 F 01/16/25 09:53 Pulse 73 01/16/25 09:53 Resp 18 01/16/25 09:53 BP 110/68 01/16/25 09:53 Pulse Ox 96 01/16/25 09:53 Oxygen Delivery Method Room Air 01/16/25 09:53 BMI result Body Mass Index 27.0 Const General: no acute distress HEENT Head: Yes normal to inspection Ears: hearing grossly normal bilaterally Neck Neck: Yes no lymphadenopathy and Yes supple Resp Effort & Inspection: normal respiratory effort Auscultation: clear to auscultation bilaterally Cardio Rhythm: regular rhythm Heart sounds: S1 normal heart sound present and S2 normal heart sound present GI Inspection: Yes normal to inspection Palpation (GI): Soft to palpation Percussion: Yes normal to percussion Auscultation: normal bowel sounds Extrem General: Yes no clubbing, cyanosis or edema Assessment & Plan Assessment & Plan (1) Hyperlipemia: Code(s): E78.5 - Hyperlipidemia, unspecified Plan: cont statin (2) Vitamin D deficiency: Code(s): E55.9 - Vitamin D deficiency, unspecified Plan: restart vit D (3) Intraparenchymal hemorrhage of brain: Comment: [facility] 07/2024, patient needs a repeat MRI in 2-3 months Code(s): I61.9 - Nontraumatic intracerebral hemorrhage, unspecified Plan: Follow-up with Neurology, (4) Subarachnoid hemorrhage: Comment: Hospitalized at [facility] 07/2024 Code(s): I60.9 - Nontraumatic subarachnoid hemorrhage, unspecified Plan: Follow-up with neurology (5) Seizure: Comment: Secondary to intraparenchymal hemorrhage of the brain, started on Keppra 07/2024, follow-up with [facility] Neurology Code(s): R56.9 - Unspecified convulsions Plan: Continue Keppra for 1 year (6) Annual physical exam: Comment: Negative Cologuard 11/21, mammogram scheduled 01/23, patient declined i mmunization Code(s): Z00.00 - Encounter for general adult medical examination without abnormal findings Plan: Well-balanced diet regular physical activity discussed with the patient she is up-to-date with the mammogram had negative Cologuard in November 21 Orders: Orders Comprehensive [place]. Panel Fast 6 Months E55.9 - Vitamin D deficiency, unspecified, E78.5 - Hyperlipidemia, unspecified, R56.9 - Unspecified convulsions Vitamin D 25-OH Total 6 Months E55.9 - Vitamin D deficiency, unspecified XR DEXA axial skeleton 4 Months Z78.0 - Asymptomatic menopausal state Lipid Panel 6 Months E55.9 - Vitamin D deficiency, unspecified, E78.5 - Hyperlipidemia, unspecified Medications: Refilled amlodipine-benazepril 10-40 mg 1 cap PO DAILY 90 caps 3RF atorvastatin 40 mg PO DAILY 90 tabs 3RF folic acid 1 mg PO DAILY 90 tabs 3RF levetiracetam (Keppra) 500 mg PO BID 180 tabs 3RF sertraline 50 mg PO DAILY 90 tabs 3RF thiamine HCl (vitamin B1) 100 mg PO DAILY 90 tabs 3RF Quality Reporting (2019) Depression/Bipolar (159/160/161/177) PHQ-9: Total score: 0 Coding Level of Care Code Medicare Subsequent (G0439) Diagnoses Hyperlipemia E78.5 Vitamin D deficiency E55.9 Intraparenchymal hemorrhage of brain I61.9 Subarachnoid hemorrhage I60.9 Seizure R56.9 Annual physical exam Z00.00 CPT Codes Advance Care Planning - Time spent: 1-15 minutes, on File ([id number]) Additional Codes PHQ-9 - 27074 - PHQ-9 Billing: Yes ([id number]) Advance Care Planning Advance Care Planning discussion: Completed/Scanned Forms completed: Health Care Proxy Time spent: 1-15 minutes, on File Did not discuss due to Cultural/Spiritual beliefs: Yes
== END 2025-01-16 10:46 | disposition home or self-care (01) ==
PROVIDERS: PCP Internal Medicine; Visit Provider Internal Medicine
DX: Z00.00 Encounter for general adult medical examination without abnormal findings (principal); I61.9 Nontraumatic intracerebral hemorrhage, unspecified; I60.9 Nontraumatic subarachnoid hemorrhage, unspecified; R56.9 Unspecified convulsions; E78.5 Hyperlipidemia, unspecified; E55.9 Vitamin D deficiency, unspecified

== ENCOUNTER → 2025-01-16 09:36 | Outpatient (BNVA) | payer MEDICARE, SELFPAY | PROVIDERS: PCP Internal Medicine; Visit Provider Internal Medicine | DX: Z00.00 Encounter for general adult medical examination without abnormal findings (principal); E78.5 Hyperlipidemia, unspecified; E55.9 Vitamin D deficiency, unspecified; I61.9 Nontraumatic intracerebral hemorrhage, unspecified; I60.9 Nontraumatic subarachnoid hemorrhage, unspecified; R56.9 Unspecified convulsions | CPT/HCPCS: 96127 ==

== ENCOUNTER 2025-01-18 09:36 | Outpatient (REF) | payer MEDICARE, SELFPAY | END 2025-01-18 09:37 | disposition home or self-care (01) | LOC: HO.MAMMO 09:36 | PROVIDERS: PCP Internal Medicine; Visit Provider Internal Medicine | DX: Z13.820 Encounter for screening for osteoporosis (principal); Z78.0 Asymptomatic menopausal state | CPT/HCPCS: 77080 ==

== ENCOUNTER → 2025-01-18 10:00 | Outpatient (BNV) | payer MEDICARE, SELFPAY | PROVIDERS: PCP Internal Medicine; Visit Provider Radiology Diagnostic Radiology | DX: E28.39 Other primary ovarian failure (principal) | CPT/HCPCS: 77085 ==

== ENCOUNTER 2025-02-15 11:32 | Outpatient (REF) | payer MEDICARE, SELFPAY | END 2025-02-15 11:33 | disposition home or self-care (01) | LOC: HO.MAMMO 11:32 | PROVIDERS: PCP Internal Medicine; Visit Provider Internal Medicine | DX: Z12.31 Encounter for screening mammogram for malignant neoplasm of breast (principal) | CPT/HCPCS: 77063; 77067 ==

== ENCOUNTER → 2025-02-15 12:15 | Outpatient (BNV) | payer MEDICARE, SELFPAY | PROVIDERS: PCP Internal Medicine; Visit Provider Internal Medicine | DX: Z12.31 Encounter for screening mammogram for malignant neoplasm of breast (principal) | CPT/HCPCS: 77063; 77067 ==

== ENCOUNTER 2025-07-13 07:36 | Outpatient (REF) | payer MEDICARE, SELFPAY ==
[2025-07-13 10:33] LABS: Alanine Aminotransferase 19 U/L (0-31); Albumin Level 4.2 g/dL (3.5-5.0); Alkaline Phosphatase 62 U/L (39-117); Anion Gap 12 (12-20); Aspartate Amino Transferase 30 U/L (5-31); Blood Urea Nitrogen 14 mg/dL (9-16); Calcium 9.7 mg/dL (8.4-10.2); Carbon Dioxide 26 mmol/L (22-29); Chloride 103 mmol/L (96-108); Cholesterol 220 mg/dL (<200); Estimated Glomerular Filt Rate > 60; HDL Cholesterol 92 mg/dL (>40); Potassium 4.5 mmol/L (3.3-5.1); Sodium 136 mmol/L (135-145); Total Protein 7.1 g/dL (6.5-8.0); Triglycerides 76 mg/dL (<150)
== END 2025-07-13 07:37 | disposition home or self-care (01) ==
LOC: HO.HMGCLDS 07:36
PROVIDERS: PCP Internal Medicine; Visit Provider Internal Medicine
DX: R56.9 Unspecified convulsions (principal); E55.9 Vitamin D deficiency, unspecified; E78.5 Hyperlipidemia, unspecified
CPT/HCPCS: 36415; 80053; 80061; 82306

== ENCOUNTER 2025-07-17 07:00 | Outpatient (RCR) | payer MEDICARE, SELFPAY ==
--- NOTE | 2025-07-03 07:35 | MHC.PT.EP ---
[facility] [place] Office [place] Office [place] Office [address] Amrik Lucio [address] [phone] F: [phone] F: [phone] F: [phone] F: [phone] Physical Therapy Plan of Care Date of Evaluation: 07/03/25 Date of Surgery: n/a Diagnosis: sciatica, unspecified side Assessment: Patient is a 74 year old female presenting to PT with complaints of pain in her low back. Pt reports onset of pain began about 2 months ago due to gardening. She presents today with impairments in pain, lumbar ROM, core strength, hip strength. Pt's current occupation is retired, with baseline physical activities including ambulating, lifting, bending, ADLs, stair negotiation, vacuuming. Pt expresses snf goal of reducing pain, and is motivated to work towards this in PT. Clinical presentation today is most consistent with signs and sx associated with low back pain and pt will benefit from skilled PT 2 week x 4 weeks to address the following problems and impairments noted upon evaluation: pain, lumbar ROM, core strength, hip strength. These problems limit the patient with the following functional activities: lifting, bending, ADLs, stair negotiation, vacuuming. The prescribed treatment plan of care is medically necessary. Co-morbidities of seizure were identified and taken into considerations of plan of care. Pt was educated on HEP, role of PT, prognosis, POC. Frequency and Duration: The patient will be seen 2 x week x 4 weeks Short Term Goals: Pt will demonstrate improved hip MMT strength by 1/3 grade in 2 weeks. Pt will demonstrate ability to perform PPT with good core control in 2 weeks. Pt will demonstrate ability to move through lumbar ROM with min to no pain in 2 weeks. Senior Living Goals: Pt will demonstrate improved Guilherme score by 10% in 4 weeks for improved functional mobility. Pt will demonstrate ability to complete all ADLs with min to no pain in 4 weeks for return to PLOF. Pt will demonstrate ability to complete household duties with min to n pain in 4 weeks for return to PLOF. Treatment Plan: Modalities to reduce pain, spasms and effusion. Manual therapy to restore motion and function. Therapeutic exercise to improve strength and flexibility. Neuromuscular re-education for posture and balance. Therapeutic activities to return to functional activities of daily living. Electronically signed by: Dian Webber, PT, DPT, ATC Please sign and return to therapist. Thank you for your referral.
--- NOTE | 2025-08-15 07:33 | MHC.PT.DC ---
[facility] [place] Office [place] Office [place] Office [address]io [address] [phone] F: [phone] F: [phone] F: [phone] F: [phone] Physical Therapy Discharge Report Diagnosis: sciatica, unspecified side Date of Surgery: n/a Date of Evaluation: 07/03/25 Date of Discharge: 08/15/25 Treatments to Date: 5 Cancellations to Date: 3 No Shows to Date: 0 Discharge Status: Independent with HEP Discharge Summary: Pt has not attended skilled PT in >30 days so therefore to be d/c per plan at last visit. Electronically signed by: Dian Webber, PT, DPT, ATC Please sign and return to therapist. Thank you for your referral.
== END 2025-08-15 07:33 | disposition home or self-care (01) ==
LOC: HO.PTCHIC 07:00
PROVIDERS: PCP Internal Medicine; Visit Provider Internal Medicine
DX: M54.30 Sciatica, unspecified side (principal)
CPT/HCPCS: 97110; 97161

== ENCOUNTER 2025-08-02 09:43 | Outpatient (REF) | payer MEDICARE, SELFPAY ==
--- NOTE | ~2025-08-02 | XR_ITS ---
EXAMINATION: XR LUMBOSACRAL SPINE CLINICAL INFORMATION: M54.50 - Low back pain, unspecified COMPARISON: None available. TECHNIQUE: AP and lateral views FINDINGS: There is a dextroconvex rotoscoliosis apex at L3-4. There is multilevel endplate sclerosis decreased intervertebral disc height, small marginal osteophyte formation throughout the axial skeleton pronounced at L4-5 L3-4 and L5-S1. There is a grade 1 anterolisthesis at L4-5 and L5-S1. Facet joint hypertrophy at L4-5 and L5-S1, bilaterally. No lytic or blastic lesions. Sclerosis along the articular surface of the coxofemoral joints with asymmetric joint space narrowing pronounced on the right hip. Osteopenia versus osteoporosis. No acute cortical disruption. XR/XR lumbar spine 2-3V IMPRESSION: Multilevel thoracolumbar spondylosis and dextroconvex rotoscoliosis resulting in grade 1 anterolisthesis L4-5 and L5-S1. Electronically signed by: Marcio Ortiz MD 08/02/2025 11:14 AM EDT
--- NOTE | ~2025-08-02 | XR_ITS ---
EXAMINATION: XR SACROILIAC JOINTS CLINICAL INFORMATION: M53.3 - Sacrococcygeal disorders, not elsewhere classified COMPARISON: None available. TECHNIQUE: AP and oblique views of the sacroiliac joints FINDINGS: Sclerosis and vacuum phenomenon, right sacroiliac joint. Sclerosis along the left sacroiliac joint. No acute cortical disruption. No lytic or blastic lesions. Sclerosis along the articular surface of the acetabulum with asymmetric joint space narrowing pronounced on the right hip. Degenerative changes in the symphysis pubis. Spondylosis, L4-5 and L5-S1 and to a lesser extent L3-4. XR/XR sacroiliac joint min 3V IMPRESSION: Sacroiliitis, right greater than the left side. Osteoarthrosis/osteoarthritis, right greater than left hip. Electronically signed by: Marcio Ortiz MD 08/02/2025 11:16 AM EDT
== END 2025-08-02 09:44 | disposition home or self-care (01) ==
LOC: HO.HMGCX 09:43
PROVIDERS: PCP Internal Medicine; Visit Provider Internal Medicine
DX: M53.3 Sacrococcygeal disorders, not elsewhere classified (principal); M54.50 Low back pain, unspecified; G89.29 Other chronic pain; I10 Essential (primary) hypertension; E78.5 Hyperlipidemia, unspecified
CPT/HCPCS: 72100; 72202; 96127; 99212

== ENCOUNTER 2025-08-02 09:43 | Outpatient (AMB) | payer MEDICARE, SELFPAY ==
[2025-08-02 09:50] VITALS: BP 124/70; PULSE 75; RESP 18; TEMP 36.8; O2SAT 96; BMI 27.4
--- NOTE | 2025-08-02 09:50 | MHC.PC.OV ---
Vital Signs 08/02/25 09:50 Height 5 ft 2.5 in Weight 152 lb BMI 27.4 BP 124/70 Blood Pressure Location Lt brachial Position Sitting Respiration 18 Pulse 75 Pulse Source Pulse Oximeter Temp 98.3 F Temp Source Oral Pulse Oximetry (%) 96 Oxygen Delivery Method Room Air Intake Visit Reasons: 6 months f/up Intake Note: Pt is here today for 6 months follow up visit. Pt states that she hurt her back in April. Allergies No Known Allergies Allergy (Verified 08/02/25 09:52) Medication List - Last Reconciled 08/02/25 by Kami Hicks MD amlodipine-benazepril 10-40 mg 1 cap PO DAILY atorvastatin 40 mg PO DAILY folic acid 1 mg PO DAILY levetiracetam (Keppra) 500 mg PO BID sertraline 50 mg PO DAILY thiamine HCl (vitamin B1) 100 mg PO DAILY Tobacco use date assessed: 08/02/25 Fall risk assessment: No Falls in past year Last assessed Fall Risk: 08/02/25 Dental Screening Dental Screen Date: 08/02/25 Did you have a dental visit in the last 12 months?: Yes Did you have a dental problem in the last 6 months where you did not have access to dental care?: No Was dental information given to patient?: Patient has dentist HPI 6 months f/up HPI Details PATIENT PRESENTS FOR THE FOLLOW-UP ON HYPERTENSION HYPERLIPIDEMIA, CONTROLLED ON CURRENT MEDICATIONS. Patient complains of chronic for 3 months persistent lower back pain worse after walking or standing for long time. Patient feels the right side discomfort when taking bigger steps. She denies any pain radiating to lower extremities, weakness or numbness in extremities, change in the bowel or bladder function. Patient completed physical therapy and has been doing lower back exercises daily. She has been taking Aleve without significant relief FORMERLY [facility], [facility] Medical History (Updated 08/02/25 @ 10:44 by Kami Hicks MD) Seizure Intraparenchymal hemorrhage of brain Subarachnoid hemorrhage Chronic SI joint pain Lumbar back pain Osteopenia Anxiety Vitamin D deficiency Annual physical exam Normal Pap smear Hyperlipemia HTN (hypertension) Surgical History H/O colonoscopy Family History Father No problems noted. Mother No problems noted. Social History Housing: House Alcohol intake: current Alcohol intake frequency: a few times a week Patient Tobacco Use Status: Never used Tobacco e-Cigarette/Vaping Use: Never Used Second Hand Smoke Exposure: No service: No Current occupational status: employed Current occupation: Caterer Current occupational exposures/hazards: No Cognitive needs: No Hearing needs: No Vision needs: No Questionnaire Thrive Questionnaire Date Thrive assessed: 08/02/25 I am a: Patient What is your living situation today?: I have a steady place to live Within the past 12 months, did the food you bought not last and you didn't have the money to get more?: Never true Within the past 12 months, did you worry whether your food would run out before you got money to buy more?: Never true Do you have trouble paying for medicines?: No Do you have trouble getting transportation to medical appointments?: No Do you have trouble paying your heating and electricity bill?: No Do you have trouble taking care of your child, family member or friend?: No Do you have trouble with day-to-day activities such as bathing, preparing meals, shopping, managing finances, etc.?: No Are you currently unemployed and looking for a job?: No Are you interested in more education?: No Please select the resources that you would like help with: None Currently or been in a relationship where the following occur: No concerns reported THRIVE Score: 0 AUDIT C Alcohol Use Questionnaire (AUDIT-C) 1. How often do you have a drink containing alcohol?: 2-3 times a week 2. How many drinks containing alcohol do you have on a typical day when you are drinking?: 1 or 2 3. How often do you have six or more drinks on one occasion?: Never Total Score: 3 GEOVANNI-7 AMB Questionnaire GEOVANNI-7 Date GEOVANNI - 7 assessed: 08/02/25 Feeling nervous, anxious, or on edge: 0 = Not at all Not being able to stop or control worryin = Not at all Worrying too much about different things: 0 = Not at all Trouble relaxin = Not at all Being so restless that it is hard to sit still: 0 = Not at all Becoming easily annoyed or irritable: 0 = Not at all Feeling afraid as if something awful might happen: 0 = Not at all Total GEOVANNI-7 score (0-4 normal; 5-9 mild; 10-14 moderate; 15-21 severe): 0 Source: Developed by Drs. Avila Gerber, Katie Farias, Fazal Mcfadden and colleagues, with an educational bonnie from [employer]. GEOVANNI-7 Assessment Billing GEOVANNI-7 Assessment Tool: GEOVANNI-7 Assessment 43216 Review of Systems Const All systems reviewed & are unremarkable except as noted in HPI and below Eyes Reports no additional complaints ENT Reports no additional complaints Card Reports no additional complaints Resp Reports no additional complaints GI Reports no additional complaints Reports no additional complaints Physical exam (Primary Care) Vital Signs: Last Vital Signs Temp 98.3 F 08/02/25 09:50 Pulse 75 08/02/25 09:50 Resp 18 08/02/25 09:50 BP 124/70 08/02/25 09:50 Pulse Ox 96 08/02/25 09:50 Oxygen Delivery Method Room Air 08/02/25 09:50 BMI result Body Mass Index 27.4 Tobacco/Smoking Status: Tobacco use Status Tobacco use date assessed 08/02/25 08/02/25 09:56 Patient Tobacco Use Status Never used Tobacco 08/02/25 09:56 e-Cigarette/Vaping Use Never Used 08/02/25 09:50 Thrive Assessment: Date of Thrive Assessment Date Thrive assessed 08/02/25 08/02/25 09:56 Currently or been in a relationship where the following occur: No concerns reported Const General: no acute distress HENMT Head: Yes normal to inspection Ears: TM's normal bilaterally Neck Neck: Yes supple Resp Effort & Inspection: normal respiratory effort Auscultation: clear to auscultation bilaterally Cardio Rhythm: regular rhythm Heart sounds: S1 normal heart sound present and S2 normal heart sound present GI Inspection: Yes normal to inspection Palpation (GI): Soft to palpation Auscultation: normal bowel sounds Back/Spine/Pelvis Other: Paraspinal tenderness in the lower lumbar region, right more than left, SI joint tenderness right more than left, straight leg rising 90 degrees bilaterally, LE strength is 5/5 b/l Coding Level of Care Code Est Pt Level 4 (01372) Diagnoses Lumbar back pain M54.50 HTN (hypertension) I10 Hyperlipemia E78.5 Osteopenia M85.80 Additional Codes GEOVANNI-7 Assessment Billing - GEOVANNI-7 Assessment Tool: GEOVANNI-7 Assessment 39310 ([id number]) Assessment & Plan Assessment & Plan (1) Lumbar back pain: Code(s): M54.50 - Low back pain, unspecified Category: Medical Plan: For persistent and chronic lower back pain obtain x-rays of lumbar spine is SI joints and refer to pain management (2) HTN (hypertension): Code(s): I10 - Essential (primary) hypertension Category: Medical Plan: cont meds (3) Hyperlipemia: Code(s): E78.5 - Hyperlipidemia, unspecified Category: Medical Plan: cont statin (4) Osteopenia: Comment: DEXA 04/2022. T score -2.4 L femur neck, unchanged from 2019, DEXA 12/2024 T score -2.3 L fem neck, unchanged Code(s): M85.80 - Other specified disorders of bone density and structure, unspecified site Category: Medical Plan: cont vit D supplement and weight-bearing exercises Orders: Orders XR lumbar spine 2-3V Today M54.50 - Low back pain, unspecified Complete Blood Count Auto Diff 6 Months E55.9 - Vitamin D deficiency, unspecified, E78.5 - Hyperlipidemia, unspecified, I10 - Essential (primary) hypertension, M85.80 - Other specified disorders of bone density and structure, unspecified site TSH reflex Free T4 6 Months E55.9 - Vitamin D deficiency, unspecified, E78.5 - Hyperlipidemia, unspecified, I10 - Essential (primary) hypertension, M85.80 - Other specified disorders of bone density and structure, unspecified site Vitamin D 25-OH Total 6 Months E55.9 - Vitamin D deficiency, unspecified, E78.5 - Hyperlipidemia, unspecified, I10 - Essential (primary) hypertension, M85.80 - Other specified disorders of bone density and structure, unspecified site XR sacroiliac joint min 3V Today G89.29 - Other chronic pain, M53.3 - Sacrococcygeal disorders, not elsewhere classified Comprehensive [place]. Panel Fast 6 Months E55.9 - Vitamin D deficiency, unspecified, E78.5 - Hyperlipidemia, unspecified, I10 - Essential (primary) hypertension, M85.80 - Other specified disorders of bone density and structure, unspecified site Lipid Panel 6 Months E55.9 - Vitamin D deficiency, unspecified, E78.5 - Hyperlipidemia, unspecified, I10 - Essential (primary) hypertension, M85.80 - Other specified disorders of bone density and structure, unspecified site Vitamin B12 and Folate 6 Months E55.9 - Vitamin D deficiency, unspecified, E78.5 - Hyperlipidemia, unspecified, I10 - Essential (primary) hypertension, M85.80 - Other specified disorders of bone density and structure, unspecified site Referrals Pain Management Referral M54.30 - Sciatica, unspecified side, M54.50 - Low back pain, unspecified
== END 2025-08-02 10:50 | disposition home or self-care (01) ==
LOC: HO.HMCC 09:44
PROVIDERS: PCP Internal Medicine; Visit Provider Internal Medicine
DX: M54.50 Low back pain, unspecified (principal); I10 Essential (primary) hypertension; E78.5 Hyperlipidemia, unspecified; M85.80 Other specified disorders of bone density and structure, unspecified site

== ENCOUNTER → 2025-08-02 10:46 | Outpatient (BNV) | payer MEDICARE, SELFPAY | PROVIDERS: PCP Internal Medicine; Visit Provider Radiology Diagnostic Radiology | DX: M46.1 Sacroiliitis, not elsewhere classified (principal); M16.12 Unilateral primary osteoarthritis, left hip; M47.815 Spondylosis without myelopathy or radiculopathy, thoracolumbar region | CPT/HCPCS: 72100; 72202 ==

== ENCOUNTER 2025-08-22 09:09 | Outpatient (AMB) | payer MEDICARE, SELFPAY ==
--- NOTE | 2025-08-22 09:11 | MHC.OFFVIS ---
Vital Signs 08/22/25 09:16 Height 5 ft 2.5 in Weight 149 lb 8 oz BMI 26.9 BP 145/76 H Blood Pressure Location Lt brachial Position Sitting Pulse 89 Pulse Source Pulse Oximeter Pulse Oximetry (%) 98 Oxygen Delivery Method Room Air Intake Visit Reasons: Sciatica, unspecified side Intake Note: Pain today 07/09 Licensed Clinical Psychologist Required: No Accompanied by: Self / Same As Patient Allergies No Known Allergies Allergy (Verified 08/22/25 09:15) Medication List - Last Reconciled 08/22/25 by CHARLIE Andre amlodipine-benazepril 10-40 mg 1 cap PO DAILY atorvastatin 40 mg PO DAILY folic acid 1 mg PO DAILY sertraline 50 mg PO DAILY thiamine HCl (vitamin B1) 100 mg PO DAILY HPI Comments Details: The patient is a 75-year-old female presenting with chronic low back pain and left-sided sciatica. The sciatica began in April while she was gardening, characterized by lower back pain radiating down the left leg. She describes the pain as stabbing, shooting, throbbing, and burning, exacerbated by walking, bending, prolonged sitting, and climbing stairs, and slightly relieved by lying flat. Back pain radiates to left buttock and into posterior and lateral hip but not below knee level. Denies any numbness, tingling, weakness, bladder or bowel dysfunction or saddle anesthesia. Patient reports at times she feels off balance and feels better if she has shopping cart in front of her when shopping. The patient completed physical therapy a month ago without significant improvement. She has a history of seizures (no longer on Keppra), subarachnoid hemorrhage, chronic sacroiliac joint pain, lumbar back pain, osteopenia, and anxiety. She denies any previous back or neck surgeries or injections. Recent imaging revealed sacroiliitis, more severe on the right side, and osteoarthritis in both hips, with the right side being worse. The back x-ray showed multilevel thoracolumbar spondylosis and grade 1 anterolisthesis at L4-L5 and L5-S1. - Onset: Began in April during gardening - Quality: Stabbing, shooting, throbbing, burning, sharp, aching, radiating - Location: Lower back radiating down the left leg - Exacerbating factors: Walking, bending, climbing stairs, prolonged sitting or driving, changing positions, twisting - Relieving factors: Lying flat, Aleve, heat, Biofreeze - Interference: Affects mobility, especially when climbing stairs - Affect: Pain impacts mobility and daily activities - Analgesia: Uses Aleve and Biofreeze; prednisone was not effective - Adverse Effects: No adverse effects from current pain management reported - Activities of Daily Living: Pain affects ability to climb stairs, sitting, certain movements and perform gardening - Aberrant Drug Related Behaviors: None reported Oswestry Low Back Pain Disability Score=19 [facility] Medical History (Updated 08/22/25 @ 09:39 by CHARLIE Andre) Lumbar scoliosis Seizure Intraparenchymal hemorrhage of brain Subarachnoid hemorrhage Chronic SI joint pain Lumbar back pain Osteopenia Anxiety Vitamin D deficiency Annual physical exam Normal Pap smear Hyperlipemia HTN (hypertension) Surgical History H/O colonoscopy Family History Father No problems noted. Mother No problems noted. Social History Housing: House Alcohol intake: current Alcohol intake frequency: a few times a week Patient Tobacco Use Status: Never used Tobacco e-Cigarette/Vaping Use: Never Used Second Hand Smoke Exposure: No service: No Current occupational status: employed Current occupation: Caterer Current occupational exposures/hazards: No Cognitive needs: No Hearing needs: No Vision needs: No Review of Systems Const Details: - Musculoskeletal: Reports chronic low back pain radiating to the left buttock, hip and thigh, exacerbated by physical activity. Denies groin pain bilaterally. - Neurological: Denies numbness or tingling in the heel or toes - Genitourinary: Denies urinary or bowel incontinence - Sleep: Reports sleeping 5-6 hours per night without pain interference All systems reviewed & are unremarkable except as noted in HPI and below Physical Exam Vital Signs: Last Vital Signs Pulse 89 08/22/25 09:16 BP 145/76 H 08/22/25 09:16 Pulse Ox 98 08/22/25 09:16 Oxygen Delivery Method Room Air 08/22/25 09:16 BMI result Body Mass Index 26.9 General: Appears afebrile. Alert and oriented. Mood and affect appropriate. Follows and participates in conversation appropriately. Respiratory effort is unlabored. No cough. Able to transition from sit to stand unassisted. Ambulates with bilaterally normal heel strike and toe off. General: Yes no CVA tenderness Back/Spine/Pelvis Other: Patient is able to walk and stand on heels and tip toes with no difficulties demonstrating good motor tone. Normal gait, no limping. Lumbar flexion, axial rotations, bending and flexion forward reproduce mild to moderate pain. Demonstrates 5/5 strength of quadriceps bilaterally as well as flexion/dorsiflexion of bilateral feet against resistance. 2+ pedal pulses bilaterally. Straight leg rise with dorsiflexion negative bilaterally. +2 patellar and +1 achilles reflexes bilaterally. Facet loading test positive bilaterally. Cruz sign, Cruzito?s, Gaenslen, Pelvic compression and Stinchfield tests are positive on the left. No groin pain with I/E hip rotations. Valsalva maneuver negative. Back: no CVA tenderness Cervical Spine: cervical ROM normal, No cervical muscular tenderness, No pain with cervical ROM, No Cervical spine tenderness and No step off deformity Thoracic/Lumbar Spine: thoracic and lumbar spine normal to inspection, No Thoracic/lumbar spine scar(s), Lasegue's sign negative, straight leg raise negative bilaterally, pain with thoraco-lumbar ROM, paraspinal muscle tenderness on the left greater than right, Thoracic/lumbar scoliosis, No thoracic spinal tenderness and No lumbar spinal tenderness Sacroiliac joints: on the right nontender and on the left tender to palpation Extrem General: Yes capillary refill normal, Yes no clubbing, cyanosis or edema and Yes no calf tenderness Results Reviewed Results Reviewed: XR SACROILIAC JOINTS 08/02/25 CLINICAL INFORMATION: M53.3 - Sacrococcygeal disorders, not elsewhere classified COMPARISON: None available. TECHNIQUE: AP and oblique views of the sacroiliac joints FINDINGS: Sclerosis and vacuum phenomenon, right sacroiliac joint. Sclerosis along the left sacroiliac joint. No acute cortical disruption. No lytic or blastic lesions. Sclerosis along the articular surface of the acetabulum with asymmetric joint space narrowing pronounced on the right hip. Degenerative changes in the symphysis pubis. Spondylosis, L4-5 and L5-S1 and to a lesser extent L3-4. IMPRESSION: Sacroiliitis, right greater than the left side. Osteoarthrosis/osteoarthritis, right greater than left hip. XR LUMBOSACRAL SPINE 08/02/25 CLINICAL INFORMATION: M54.50 - Low back pain, unspecified COMPARISON: None available. TECHNIQUE: AP and lateral views FINDINGS: There is a dextroconvex rotoscoliosis apex at L3-4. There is multilevel endplate sclerosis decreased intervertebral disc height, small marginal osteophyte formation throughout the axial skeleton pronounced at L4-5 L3-4 and L5-S1. There is a grade 1 anterolisthesis at L4-5 and L5-S1. Facet joint hypertrophy at L4-5 and L5-S1, bilaterally. No lytic or blastic lesions. Sclerosis along the articular surface of the coxofemoral joints with asymmetric joint space narrowing pronounced on the right hip. Osteopenia versus osteoporosis. No acute cortical disruption. IMPRESSION: Multilevel thoracolumbar spondylosis and dextroconvex rotoscoliosis resulting in grade 1 anterolisthesis L4-5 and L5-S1. Assessment & Plan Assessment & Plan (1) Lumbar back pain: Code(s): M54.50 - Low back pain, unspecified Category: Medical (2) Chronic SI joint pain: Code(s): M53.3 - Sacrococcygeal disorders, not elsewhere classified; G89.29 - Other chronic pain Category: Medical (3) Spondylolisthesis, lumbar region: Code(s): M43.16 - Spondylolisthesis, lumbar region Category: Medical (4) Lumbar scoliosis: Code(s): M41.9 - Scoliosis, unspecified Category: Medical (5) Lumbar radiculopathy: Code(s): M54.16 - Radiculopathy, lumbar region Category: Medical (6) Lumbar degenerative disc disease: Code(s): M51.369 - Other intervertebral disc degeneration, lumbar region without mention of lumbar back pain or lower extremity pain Category: Medical Plan The plan includes proceeding with a left-sided therapeutic sacroiliac joint injection, pending insurance approval. Patient's symptoms overlap left sided sciatica with sacroiliac joint pain. Axial low back pain is minimal and she denies significant hip or groin pain. Schedule Right therapeutic sacroiliac joint injection with local and fluoroscopy. Expectations, risks and benefits were reviewed. Patient is aware she will be contacted to schedule this procedure. An MRI will be obtained to further evaluate neural integrity, compression, follow up on dextroconvex rotoscoliosis resulting in grade 1 anterolisthesis L4-5 and L5-S1, given the patient's report of unsteadiness and the presence of scoliosis. All questions and concerns have been answered and patient agreed with the treatment plan. Follow up for MRI results/after injection and sooner as needed. Patient was informed and verbally consented to the use of an ambient scribe for clinic note documentation during this visit. Orders: Orders MR lumbar spine wo con Today M41.9 - Scoliosis, unspecified, M43.16 - Spondylolisthesis, lumbar region, M51.369 - Other intervertebral disc degeneration, lumbar region without mention of lumbar back pain or lower extremity pain, M54.16 - Radiculopathy, lumbar region, M54.50 - Low back pain, unspecified Coding Level of Care Code New Pt Level 4 (24479) Diagnoses Lumbar back pain M54.50 Chronic SI joint pain M53.3; G89.29 Spondylolisthesis, lumbar region M43.16 Lumbar scoliosis M41.9 Lumbar radiculopathy M54.16 Lumbar degenerative disc disease M51.369
[2025-08-22 09:16] VITALS: BP 145/76; PULSE 89; O2SAT 98; BMI 26.9
== END 2025-08-22 09:51 | disposition home or self-care (01) ==
LOC: HO.PMC 09:10
PROVIDERS: PCP Internal Medicine; Visit Provider Nurse Practitioner Family
DX: M54.50 Low back pain, unspecified (principal); M53.3 Sacrococcygeal disorders, not elsewhere classified; G89.29 Other chronic pain; M43.16 Spondylolisthesis, lumbar region; M41.9 Scoliosis, unspecified; M54.16 Radiculopathy, lumbar region; M51.369 Other intervertebral disc degeneration, lumbar region without mention of lumbar back pain or lower extremity pain
CPT/HCPCS: 99204

== ENCOUNTER → 2025-08-22 09:09 | Outpatient (BNVA) | payer MEDICARE, SELFPAY | PROVIDERS: PCP Internal Medicine; Visit Provider Nurse Practitioner Family | DX: M51.369 Other intervertebral disc degeneration, lumbar region without mention of lumbar back pain or lower extremity pain (principal); M54.16 Radiculopathy, lumbar region; M41.86 Other forms of scoliosis, lumbar region; M43.16 Spondylolisthesis, lumbar region; M53.3 Sacrococcygeal disorders, not elsewhere classified; M54.50 Low back pain, unspecified; G89.29 Other chronic pain | CPT/HCPCS: 99202 ==

== ENCOUNTER 2025-09-13 07:18 | Outpatient (REF) | payer MEDICARE, SELFPAY ==
--- NOTE | ~2025-09-13 | MR_ITS ---
EXAMINATION: MR LUMBAR SPINE WITHOUT CONTRAST CLINICAL INFORMATION: Low back pain unspecified specified. No injury. Symptoms since 04/2025 after working in garden. COMPARISON: No prior MRI. Lumbar radiographs 08/02/2025. TECHNIQUE: Multiplanar multisequence MR imaging of the lumbar spine was done without IV contrast. Examination was performed on a 1.5 Treva Siemens magnet, utilizing standard sequences. FINDINGS: CORONAL ALIGNMENT: -There is a mild right convex scoliosis, apex at L3-4. SAGITTAL ALIGNMENT: - There is a mildly exaggerated lordosis. -There is a 2 mm degenerative retrolisthesis of L1 on L2. -There is a 5 mm degenerative anterolisthesis of L3 on L4. -There is an 8 mm degenerative anterolisthesis of L4 on L5. -There is a 4 mm degenerative anterolisthesis of L5 on S1. LUMBOSACRAL JUNCTION: -Normal. There are 5 enj-ezc-fzlpeal lumbar-type vertebral bodies. VERTEBRAL BODIES/BONE MARROW: -There are no compression deformities. -There are mild edematous type endplate changes at L3-4 and L4-5, and to a lesser degree at L5-S1. Edematous type endplate changes are also present at T11-T12. -No abnormal infiltrating bone marrow signal. -There are probable pars defects at L3-4. DISCS: -Mild loss of disc signal and height at L1-2. -Severe loss of disc height and signal at T11-T12, L3-L4, L4-L5, and to lesser degree at L5-S1. -There is disc vacuum phenomenon at L3-4. SPINAL CANAL: -No abnormal developmental findings. CONUS MEDULLARIS: -Terminates at inferior L1. Morphology and signal is normal. INTRADURAL NERVE ROOTS: - No abnormal nerve root clumping or masses. Axial Disc Space Images: T11-T12: There is a shallow disc bulge present, with superimposed right foraminal broad-based disc protrusion. There are mild degenerative facet changes bilaterally. There is severe disc degeneration. There is mild central canal narrowing, mild right lateral recess narrowing, and moderate right neural foraminal narrowing. T12-L1: There is no central canal or neural foraminal narrowing. Mild degenerative facet changes bilaterally. L1-L2: There is a shallow bulging disc extending into both foraminal zones. There are mild to moderate hypertrophic degenerative facet changes. There is mild posterior ligamentous thickening/infolding. No significant central canal or subarticular recess narrowing. There is mild left neural foraminal narrowing. L2-L3: No significant disc pathology. Moderate hypertrophic degenerative facet changes are present bilaterally, with posterior ligamentous thickening/infolding. There is minimal central canal narrowing. No subarticular recess narrowing. There is mild bilateral neural foraminal narrowing. L3-L4: There is disc uncovering secondary to anterolisthesis. There is a diffuse disc bulge extending into both foraminal zones symmetrically. There are severe, end-stage hypertrophic degenerative facet changes bilaterally, with facet joint effusions, and marked posterior ligamentous infolding/thickening. Combination of findings is resulting in severe central canal stenosis, severe bilateral subarticular recess stenosis, severe left, and moderate right neural foraminal stenosis. AP diameter of the central canal has been reduced to 4 mm. L4-L5: There is disc uncovering secondary to anterolisthesis. There is a diffuse disc bulge extending into the right greater than left foraminal zones. There are end-stage hypertrophic degenerative facet changes bilaterally with facet joint effusions, and severe posterior ligamentous infolding/thickening. Findings are resulting in severe central canal stenosis, severe bilateral subarticular recess stenosis, moderate right and moderate to severe left neural foraminal narrowing. AP diameter of the central canal has been reduced to 5 mm. L5-S1: End-stage degenerative facet changes bilaterally. Mild disc uncovering secondary to anterolisthesis. Mild central canal narrowing. No significant subarticular recess narrowing. Mild right neural foraminal narrowing. IMAGED SI JOINTS: -Moderate degenerative arthrosis bilaterally. PARAVERTEBRAL AND INCLUDED EXTRASPINAL SOFT TISSUES: -No paravertebral or paraspinous edema or abnormal fluid collection. There are bilateral extrarenal pelves noted. The aorta is nonaneurysmal. MR/MR lumbar spine wo con IMPRESSION: 1. Mild right convex scoliosis, and moderate to severe multilevel lumbar spondylosis, most significant spanning L3-L5. There is severe central canal and subarticular recess stenosis at L3-4, and L4-5 as detailed above. 2. Severe disc and facet degeneration at L3-4 and L4-5. Mild edematous endplate changes present at these levels. Mild endplate edema also evident at T11-T12. 3. Grade 1 anterolistheses at L3-4, and L4-5. Suspect pars defects of L3. 4. Refer to the above report for further detail. Electronically signed by: Ty Lyle MD 09/13/2025 09:28 AM EDT RP
== END 2025-09-13 07:19 | disposition home or self-care (01) ==
LOC: HO.MRI 07:18
PROVIDERS: PCP Internal Medicine; Visit Provider Nurse Practitioner Family
DX: M54.50 Low back pain, unspecified (principal); M43.16 Spondylolisthesis, lumbar region; M41.9 Scoliosis, unspecified; M54.16 Radiculopathy, lumbar region; M51.369 Other intervertebral disc degeneration, lumbar region without mention of lumbar back pain or lower extremity pain
CPT/HCPCS: 72148

== ENCOUNTER → 2025-09-13 07:21 | Outpatient (BNV) | payer MEDICARE, SELFPAY | PROVIDERS: PCP Internal Medicine; Visit Provider Radiology Diagnostic Radiology | DX: M47.816 Spondylosis without myelopathy or radiculopathy, lumbar region (principal); M48.061 Spinal stenosis, lumbar region without neurogenic claudication; M51.360 Other intervertebral disc degeneration, lumbar region with discogenic back pain only | CPT/HCPCS: 72148 ==

== ENCOUNTER 2025-10-10 06:20 | Outpatient (REF) | payer MEDICARE, SELFPAY ==
--- NOTE | ~2025-10-10 | FL_ITS ---
EXAMINATION: FLUOROSCOPY GUIDANCE FOR NEEDLE PLACEMENT CLINICAL INFORMATION: M53.3 - Sacrococcygeal disorders, not elsewhere classified COMPARISON: Sacroiliac joint x-ray July 2025 TECHNIQUE: Fluoroscopic guidance provided for pain management procedure. FINDINGS: Images demonstrate needle placement and contrast injection over the left sacroiliac joint. FLUOROSCOPY TIME: 19 seconds DOSE AREA PRODUCT: 525 mgy/sq cm. 2 saved fluoroscopic images. FL/FL guidance in treatment room IMPRESSION: Fluoroscopy guidance for pain management procedure. Electronically signed by: Imelda Badillo MD 10/10/2025 02:29 PM [facility] [place]
== END 2025-10-10 06:21 | disposition home or self-care (01) ==
LOC: CF 06:20
PROVIDERS: Visit Provider Anesthesiology
DX: M51.16 Intervertebral disc disorders with radiculopathy, lumbar region (principal); M41.9 Scoliosis, unspecified; M43.16 Spondylolisthesis, lumbar region; M53.3 Sacrococcygeal disorders, not elsewhere classified; G89.29 Other chronic pain
CPT/HCPCS: 27096; J2003; J2795; Q9967

== ENCOUNTER 2025-10-10 12:56 | Outpatient (AMB) | payer MEDICARE, SELFPAY ==
[2025-10-10 13:02] VITALS: BP 191/75; PULSE 72; RESP 16; O2SAT 97; BMI 26.8
--- NOTE | 2025-10-10 13:02 | MHC.OFFVIS ---
Vital Signs 10/10/25 13:02 10/10/25 13:37 Height 5 ft 2.5 in Weight 149 lb BMI 26.8 BP 191/75 H 165/83 H Blood Pressure Location Lt brachial Lt brachial Position Sitting Sitting Respiration 16 16 Pulse 72 73 Pulse Source Pulse Oximeter Pulse Oximeter Pulse Oximetry (%) 97 98 Oxygen Delivery Method Room Air Room Air Intake Visit Reasons: (L) Therapeutic SIJ Injection Allergies No Known Allergies Allergy (Verified 08/22/25 09:15) PFSH Medical History (Updated 08/22/25 @ 09:39 by CHARLIE Andre) Lumbar scoliosis Seizure Intraparenchymal hemorrhage of brain Subarachnoid hemorrhage Chronic SI joint pain Lumbar back pain Osteopenia Anxiety Vitamin D deficiency Annual physical exam Normal Pap smear Hyperlipemia HTN (hypertension) Surgical History H/O colonoscopy Family History Father No problems noted. Mother No problems noted. Social History Housing: House Alcohol intake: current Alcohol intake frequency: a few times a week Patient Tobacco Use Status: Never used Tobacco e-Cigarette/Vaping Use: Never Used Second Hand Smoke Exposure: No service: No Current occupational status: employed Current occupation: Caterer Current occupational exposures/hazards: No Cognitive needs: No Hearing needs: No Vision needs: No Physical Exam Vital Signs: Last Vital Signs Pulse 73 10/10/25 13:37 Resp 16 10/10/25 13:37 BP 165/83 H 10/10/25 13:37 Pulse Ox 98 10/10/25 13:37 Oxygen Delivery Method Room Air 10/10/25 13:37 BMI result Body Mass Index 26.8 Assessment & Plan Assessment & Plan (1) Lumbar back pain: Code(s): M54.50 - Low back pain, unspecified Category: Medical (2) Chronic SI joint pain: Code(s): M53.3 - Sacrococcygeal disorders, not elsewhere classified; G89.29 - Other chronic pain Category: Medical (3) Spondylolisthesis, lumbar region: Code(s): M43.16 - Spondylolisthesis, lumbar region Category: Medical (4) Lumbar scoliosis: Code(s): M41.9 - Scoliosis, unspecified Category: Medical (5) Lumbar radiculopathy: Code(s): M54.16 - Radiculopathy, lumbar region Category: Medical (6) Lumbar degenerative disc disease: Code(s): M51.369 - Other intervertebral disc degeneration, lumbar region without mention of lumbar back pain or lower extremity pain Category: Medical Plan Therapeutic left sacroiliac joint injection. the risks, benefits and alternatives were discussed with the patient and informed consent was obtained, patient was placed in the prone position and padded to foster comfort. Time out was performed delineating correct site and side of the procedure , name and of the patient, patient participated in time out procedure. The lower back and upper buttocks of the patient were prepped with ChloraPrep and draped with sterile self adhesive utility towels. C-arm was brought over the operating field and picture of the left SI joint was demonstrated on the screen. Tilting C-arm contralateral to the right the posterior silhouette of the sacroiliac joint was superimposed on anterior silhouette of the sacroiliac joint. The point slightly medial to the sacroiliac joint silhouette was inserted with 22 gauge 3-1/2 inch spinal needle was inserted through the skin wheal and advanced to were the sacroiliac joint in tunnel vision fashion. When the needle entered the sacroiliac joint capsule injection of the contrast was performed delineating intra-articular and minimally periarticular spread of the contrast. After that injection of the treatment solution of ropivacaine 0.5% 5 cc mixed with Kenalog 40 mg into the joint was performed. Upon completion of the injection needle was withdrawn sterile Band-Aid was applied. The patient tolerated the procedure well. Orders: Orders FL guidance in treatment room Today G89.29 - Other chronic pain, M53.3 - Sacrococcygeal disorders, not elsewhere classified Coding Level of Care Code Procedure Only Diagnoses Lumbar back pain M54.50 Chronic SI joint pain M53.3; G89.29 Spondylolisthesis, lumbar region M43.16 Lumbar scoliosis M41.9 Lumbar radiculopathy M54.16 Lumbar degenerative disc disease M51.369
[2025-10-10 13:37] VITALS: BP 165/83; PULSE 73; RESP 16; O2SAT 98
== END 2025-10-10 14:14 | disposition home or self-care (01) ==
LOC: HO.PMCPRC 12:56
PROVIDERS: PCP Internal Medicine; Visit Provider Anesthesiology
DX: M54.50 Low back pain, unspecified (principal); M53.3 Sacrococcygeal disorders, not elsewhere classified; G89.29 Other chronic pain; M43.16 Spondylolisthesis, lumbar region; M41.9 Scoliosis, unspecified; M54.16 Radiculopathy, lumbar region; M51.369 Other intervertebral disc degeneration, lumbar region without mention of lumbar back pain or lower extremity pain
CPT/HCPCS: 27096

== ENCOUNTER 2025-11-07 11:15 | Outpatient (AMB) | payer MEDICARE, SELFPAY ==
--- NOTE | 2025-11-07 11:17 | MHC.OFFVIS ---
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 She reports complete resolution of the left-sided buttock pain, rating it 0/10 at rest. Despite the improvement in her buttock pain, she now reports other symptoms, including pain across her lower back that is higher than the original SI joint pain, which occurs when going down stairs, walking, or lifting. She has also developed new-onset knee pain and headaches since the injection. A recent MRI of the lumbar spine revealed spondylolisthesis from L1-S1, most significant at L4-L5; severe degenerative disc disease; moderate to severe multilevel arthritis, most prominent from L3-L5; mild right-sided scoliosis; and severe central canal stenosis at L3-L4 and L4-L5. Associated with these findings, the patient endorses a feeling of imbalance when walking or bending down. She reports pain radiating to the front of both legs, which are now equally affected, whereas left leg was worse prior to the left therapeutic SI joint injection. She had episodes of urinary incontinence before the SI joint injection, which have since resolved. She currently feels a sensation of incomplete bowel evacuation and reports that straining during a bowel movement exacerbates her back pain. Her medical history is significant for hypertension, for which she takes medication. Her blood pressure today was elevated at 184/88 mmHg, compared to 145/76 at her initial visit. Patient attributes elevated BP to white coat syndrome. She will monitor her BP at home and report to PCP or seek medical evaluation at ER if it remains elevated, given recent steroid injection. Denies any recent cough, cold, infection, fever or any significant changes in medical history since last office visit. Past Procedures: 10/10/25: Left Therapeutic SI joint injection-90% ongoing pain relief PRIOR: The patient is a 75-year-old female presenting with chronic low back pain and left-sided sciatica. The sciatica began in April while she was gardening, characterized by lower back pain radiating down the left leg. She describes the pain as stabbing, shooting, throbbing, and burning, exacerbated by walking, bending, prolonged sitting, and climbing stairs, and slightly relieved by lying flat. Back pain radiates to left buttock and into posterior and lateral hip but not below knee level. Denies any numbness, tingling, weakness, bladder or bowel dysfunction or saddle anesthesia. Patient reports at times she feels off balance and feels better if she has shopping cart in front of her when shopping. The patient completed physical therapy a month ago without significant improvement. She has a history of seizures (no longer on Keppra), subarachnoid hemorrhage, chronic sacroiliac joint pain, lumbar back pain, osteopenia, and anxiety. She denies any previous back or neck surgeries or injections. Recent imaging revealed sacroiliitis, more severe on the right side, and osteoarthritis in both hips, with the right side being worse. The back x-ray showed multilevel thoracolumbar spondylosis and grade 1 anterolisthesis at L4-L5 and L5-S1. - Onset: Began in April during gardening - Quality: Stabbing, shooting, throbbing, burning, sharp, aching, radiating - Location: Lower back radiating down the left leg - Exacerbating factors: Walking, bending, climbing stairs, prolonged sitting or driving, changing positions, twisting - Relieving factors: Lying flat, Aleve, heat, Biofreeze - Interference: Affects mobility, especially when climbing stairs - Affect: Pain impacts mobility and daily activities - Analgesia: Uses Aleve and Biofreeze; prednisone was not effective - Adverse Effects: No adverse effects from current pain management reported - Activities of Daily Living: Pain affects ability to climb stairs, sitting, certain movements and perform gardening - Aberrant Drug Related Behaviors: None reported Oswestry Low Back Pain Disability Score=19 [facility] Medical History Lumbar scoliosis Seizure Intraparenchymal hemorrhage of brain Subarachnoid hemorrhage Chronic SI joint pain Lumbar back pain Osteopenia Anxiety Vitamin D deficiency Annual physical exam Normal Pap smear Hyperlipemia HTN (hypertension) Surgical History H/O colonoscopy Family History Father No problems noted. Mother No problems noted. Social History Housing: House Alcohol intake: current Alcohol intake frequency: a few times a week Patient Tobacco Use Status: Never used Tobacco e-Cigarette/Vaping Use: Never Used Second Hand Smoke Exposure: No service: No Current occupational status: employed Current occupation: Caterer Current occupational exposures/hazards: No Cognitive needs: No Hearing needs: No Vision needs: No Review of Systems Narrative Review of Systems - General: Reports feeling well. - Neurological: Reports new headaches. - Reports feeling imbalanced when walking or bending down. - Denies pain with coughing or sneezing. - Musculoskeletal: Reports complete resolution of left buttock pain. - Reports new pain across the lower back, knee pain, and pain radiating down the front of her legs. - Denies osteoporosis. - Gastrointestinal: Reports feeling of incomplete bowel evacuation and increased back pain with straining at stool. - Genitourinary: Reports resolution of prior incontinence episodes which occurred before her recent injection. Physical Exam Vital Signs: Last Vital Signs Pulse 81 11/07/25 11:20 BP 184/88 H 11/07/25 11:20 Pulse Ox 98 11/07/25 11:20 Oxygen Delivery Method Room Air 11/07/25 11:20 BMI result Body Mass Index 25.2 General: Appears afebrile. Alert and oriented. Mood and affect appropriate. Follows and participates in conversation appropriately. Respiratory effort is unlabored. No cough. Able to transition from sit to stand unassisted. Ambulates with bilaterally normal heel strike and toe off. General: Yes no CVA tenderness Back/Spine/Pelvis Other: Moderate difficulty getting up from sitting to standing. Mildly antalgic gait. Lumbar flexion, axial rotations, bending and flexion forward reproduce mild to moderate pain. Demonstrates 5/5 strength of quadriceps bilaterally as well as flexion/dorsiflexion of bilateral feet against resistance. 2+ pedal pulses bilaterally. Straight leg rise with dorsiflexion negative bilaterally. +1 patellar and +1 achilles reflexes bilaterally. Facet loading test positive bilaterally. Cruzito?s, and Stinchfield tests are positive on the left, mild pain after recent injection. No groin pain with I/E hip rotations. Valsalva maneuver is positive. Back: no CVA tenderness Cervical Spine: cervical ROM normal, No cervical muscular tenderness, No pain with cervical ROM, No Cervical spine tenderness and No step off deformity Thoracic/Lumbar Spine: thoracic and lumbar spine normal to inspection, No Thoracic/lumbar spine scar(s), Lasegue's sign negative, straight leg raise negative bilaterally, pain with thoraco-lumbar ROM, paraspinal muscle tenderness on the left greater than right, thoraco-lumbar ROM limited, Thoracic/lumbar scoliosis, No thoracic spinal tenderness and No lumbar spinal tenderness Sacroiliac joints: on the right nontender and on the left tender to palpation Extrem General: Yes capillary refill normal, Yes no clubbing, cyanosis or edema and Yes no calf tenderness Results Reviewed Results Reviewed: XR SACROILIAC JOINTS 08/02/25 CLINICAL INFORMATION: M53.3 - Sacrococcygeal disorders, not elsewhere classified COMPARISON: None available. TECHNIQUE: AP and oblique views of the sacroiliac joints FINDINGS: Sclerosis and vacuum phenomenon, right sacroiliac joint. Sclerosis along the left sacroiliac joint. No acute cortical disruption. No lytic or blastic lesions. Sclerosis along the articular surface of the acetabulum with asymmetric joint space narrowing pronounced on the right hip. Degenerative changes in the symphysis pubis. Spondylosis, L4-5 and L5-S1 and to a lesser extent L3-4. IMPRESSION: Sacroiliitis, right greater than the left side. Osteoarthrosis/osteoarthritis, right greater than left hip. XR LUMBOSACRAL SPINE 08/02/25 CLINICAL INFORMATION: M54.50 - Low back pain, unspecified COMPARISON: None available. TECHNIQUE: AP and lateral views FINDINGS: There is a dextroconvex rotoscoliosis apex at L3-4. There is multilevel endplate sclerosis decreased intervertebral disc height, small marginal osteophyte formation throughout the axial skeleton pronounced at L4-5 L3-4 and L5-S1. There is a grade 1 anterolisthesis at L4-5 and L5-S1. Facet joint hypertrophy at L4-5 and L5-S1, bilaterally. No lytic or blastic lesions. Sclerosis along the articular surface of the coxofemoral joints with asymmetric joint space narrowing pronounced on the right hip. Osteopenia versus osteoporosis. No acute cortical disruption. IMPRESSION: Multilevel thoracolumbar spondylosis and dextroconvex rotoscoliosis resulting in grade 1 anterolisthesis L4-5 and L5-S1. MR LUMBAR SPINE WITHOUT CONTRAST 09/13/25 CLINICAL INFORMATION: Low back pain unspecified specified. No injury. Symptoms since 04/2025 after working in garden. COMPARISON: No prior MRI. Lumbar radiographs 08/02/2025. TECHNIQUE: Multiplanar multisequence MR imaging of the lumbar spine was done without IV contrast. Examination was performed on a 1.5 Treva Siemens magnet, utilizing standard sequences. FINDINGS: CORONAL ALIGNMENT: -There is a mild right convex scoliosis, apex at L3-4. SAGITTAL ALIGNMENT: - There is a mildly exaggerated lordosis. -There is a 2 mm degenerative retrolisthesis of L1 on L2. -There is a 5 mm degenerative anterolisthesis of L3 on L4. -There is an 8 mm degenerative anterolisthesis of L4 on L5. -There is a 4 mm degenerative anterolisthesis of L5 on S1. LUMBOSACRAL JUNCTION: -Normal. There are 5 [id number] lumbar-type vertebral bodies. VERTEBRAL BODIES/BONE MARROW: -There are no compression deformities. -There are mild edematous type endplate changes at L3-4 and L4-5, and to a lesser degree at L5-S1. Edematous type endplate changes are also present at T11-T12. -No abnormal infiltrating bone marrow signal. -There are probable pars defects at L3-4. DISCS: -Mild loss of disc signal and height at L1-2. -Severe loss of disc height and signal at T11-T12, L3-L4, L4-L5, and to lesser degree at L5-S1. -There is disc vacuum phenomenon at L3-4. SPINAL CANAL: -No abnormal developmental findings. CONUS MEDULLARIS: -Terminates at inferior L1. Morphology and signal is normal. INTRADURAL NERVE ROOTS: - No abnormal nerve root clumping or masses. Axial Disc Space Images: T11-T12: There is a shallow disc bulge present, with superimposed right foraminal broad-based disc protrusion. There are mild degenerative facet changes bilaterally. There is severe disc degeneration. There is mild central canal narrowing, mild right lateral recess narrowing, and moderate right neural foraminal narrowing. T12-L1: There is no central canal or neural foraminal narrowing. Mild degenerative facet changes bilaterally. L1-L2: There is a shallow bulging disc extending into both foraminal zones. There are mild to moderate hypertrophic degenerative facet changes. There is mild posterior ligamentous thickening/infolding. No significant central canal or subarticular recess narrowing. There is mild left neural foraminal narrowing. L2-L3: No significant disc pathology. Moderate hypertrophic degenerative facet changes are present bilaterally, with posterior ligamentous thickening/infolding. There is minimal central canal narrowing. No subarticular recess narrowing. There is mild bilateral neural foraminal narrowing. L3-L4: There is disc uncovering secondary to anterolisthesis. There is a diffuse disc bulge extending into both foraminal zones symmetrically. There are severe, end-stage hypertrophic degenerative facet changes bilaterally, with facet joint effusions, and marked posterior ligamentous infolding/thickening. Combination of findings is resulting in severe central canal stenosis, severe bilateral subarticular recess stenosis, severe left, and moderate right neural foraminal stenosis. AP diameter of the central canal has been reduced to 4 mm. L4-L5: There is disc uncovering secondary to anterolisthesis. There is a diffuse disc bulge extending into the right greater than left foraminal zones. There are end-stage hypertrophic degenerative facet changes bilaterally with facet joint effusions, and severe posterior ligamentous infolding/thickening. Findings are resulting in severe central canal stenosis, severe bilateral subarticular recess stenosis, moderate right and moderate to severe left neural foraminal narrowing. AP diameter of the central canal has been reduced to 5 mm. L5-S1: End-stage degenerative facet changes bilaterally. Mild disc uncovering secondary to anterolisthesis. Mild central canal narrowing. No significant subarticular recess narrowing. Mild right neural foraminal narrowing. IMAGED SI JOINTS: -Moderate degenerative arthrosis bilaterally. PARAVERTEBRAL AND INCLUDED EXTRASPINAL SOFT TISSUES: -No paravertebral or paraspinous edema or abnormal fluid collection. There are bilateral extrarenal pelves noted. The aorta is nonaneurysmal. IMPRESSION: 1. Mild right convex scoliosis, and moderate to severe multilevel lumbar spondylosis, most significant spanning L3-L5. There is severe central canal and subarticular recess stenosis at L3-4, and L4-5 as detailed above. 2. Severe disc and facet degeneration at L3-4 and L4-5. Mild edematous endplate changes present at these levels. Mild endplate edema also evident at T11-T12. 3. Grade 1 anterolistheses at L3-4, and L4-5. Suspect pars defects of L3. 4. Refer to the above report for further detail. Assessment & Plan Assessment & Plan (1) Spondylolisthesis, lumbar region: Code(s): M43.16 - Spondylolisthesis, lumbar region Category: Medical (2) Lumbar radiculopathy: Code(s): M54.16 - Radiculopathy, lumbar region Category: Medical (3) Lumbar spinal stenosis: Code(s): M48.061 - Spinal stenosis, lumbar region without neurogenic claudication Category: Medical (4) Lumbar scoliosis: Code(s): M41.9 - Scoliosis, unspecified Category: Medical (5) Lumbar degenerative disc disease: Code(s): M51.369 - Other intervertebral disc degeneration, lumbar region without mention of lumbar back pain or lower extremity pain Category: Medical (6) Chronic SI joint pain: Code(s): M53.3 - Sacrococcygeal disorders, not elsewhere classified; G89.29 - Other chronic pain Category: Medical (7) Lumbosacral spondylosis: Code(s): M47.817 - Spondylosis without myelopathy or radiculopathy, lumbosacral region Category: Medical Plan The patient's left sacroiliac joint pain has resolved after her recent injection. Given her MRI findings of severe central canal stenosis at L3-L4 and L4-L5, which correlate with her spinal stenosis symptoms of pain with walking and anterior leg pain, she will be referred for a [facility] for evaluation to determine if she is a surgical candidate. Pain management options were discussed pending the neurosurgery evaluation. If she is not a surgical candidate, an interlaminar epidural steroid injection at L3-L4 or L4-L5 could be considered with clearance from neurosurgery. For her arthritic and axial low back pain, a future option includes diagnostic medial branch blocks, and if positive, radiofrequency ablation, which could provide 12-15 months of pain relief. Peripheral nerve stimulation is not an option due to her history of seizures. Regarding her elevated blood pressure of 184/88 mmHg, a potential side effect of the cortisone injection, she was advised to monitor her blood pressure at home. An offer was made to send a prescription for a blood pressure machine to her pharmacy if needed. Patient will follow up with PCP or if symptomatic with worsening headaches, will seek medical evaluation in ER. The patient was educated on red flag symptoms for back pain with significant spinal stenosis that warrant an emergency room visit, including loss of balance, incontinence, weakness, severe back pain, or loss of sensation. Follow-up will occur after the neurosurgery evaluation. Patient was informed and verbally consented to the use of an ambient scribe for clinic note documentation during this visit. Patient Instructions - You are being referred to the Neurosurgery spine center, located in this same building in room 101. - Please check your blood pressure at home. Seek ER evaluation if symptomatic and worsening headaches. - If you do not have a working blood pressure machine, please let our office or your primary care provider know so we can send a prescription for one to your pharmacy. - Go to the emergency room immediately if you experience any of the following: sudden loss of balance, new loss of bladder or bowel control, severe back pain, or loss of sensation in your legs. - We will follow up with you after your evaluation with the Neurosurgery team. Orders: Referrals Neuro Spine Referral M43.16 - Spondylolisthesis, lumbar region, M48.061 - Spinal stenosis, lumbar region without neurogenic claudication, M54.16 - Radiculopathy, lumbar region Coding Level of Care Code Est Pt Level 4 (94030) Complex visit Add On G2211 Diagnoses Spondylolisthesis, lumbar region M43.16 Lumbar radiculopathy M54.16 Lumbar spinal stenosis M48.061 Lumbar scoliosis M41.9 Lumbar degenerative disc disease M51.369 Chronic SI joint pain M53.3; G89.29 Lumbosacral spondylosis M47.817
[2025-11-07 11:20] VITALS: BP 184/88; PULSE 81; O2SAT 98; BMI 25.2
== END 2025-11-07 11:37 | disposition home or self-care (01) ==
LOC: HO.PMC 11:16
PROVIDERS: PCP Internal Medicine; Visit Provider Nurse Practitioner Family
DX: M43.16 Spondylolisthesis, lumbar region (principal); M54.16 Radiculopathy, lumbar region; M48.061 Spinal stenosis, lumbar region without neurogenic claudication; M41.9 Scoliosis, unspecified; M51.369 Other intervertebral disc degeneration, lumbar region without mention of lumbar back pain or lower extremity pain; M53.3 Sacrococcygeal disorders, not elsewhere classified; G89.29 Other chronic pain; M47.817 Spondylosis without myelopathy or radiculopathy, lumbosacral region
CPT/HCPCS: 99214; G2211

== ENCOUNTER → 2025-11-07 11:15 | Outpatient (BNVA) | payer MEDICARE, SELFPAY | PROVIDERS: PCP Internal Medicine; Visit Provider Nurse Practitioner Family | DX: M43.16 Spondylolisthesis, lumbar region (principal); M54.16 Radiculopathy, lumbar region; M48.061 Spinal stenosis, lumbar region without neurogenic claudication; M41.9 Scoliosis, unspecified; M51.369 Other intervertebral disc degeneration, lumbar region without mention of lumbar back pain or lower extremity pain; M53.3 Sacrococcygeal disorders, not elsewhere classified; M47.817 Spondylosis without myelopathy or radiculopathy, lumbosacral region; G89.29 Other chronic pain | CPT/HCPCS: 99212 ==

== ENCOUNTER 2025-11-13 09:22 | Outpatient (AMB) | payer MEDICARE, SELFPAY ==
--- NOTE | 2025-11-13 09:29 | A.SPINEOV_ITS ---
Vital Signs 11/13/25 09:34 Height 5 ft 2 in Weight 140 lb BMI 25.6 Intake Visit Reasons: LBP Intake Note: Ms. Vo is here today c/o low back pain and leg discomfort & numbness. MRI done at [facility]. [employer] Required: No Allergies No Known Allergies Allergy (Verified 11/13/25 09:35) Assessment & Plan Assessment & Plan (1) Spondylolisthesis, lumbar region: Code(s): M43.16 - Spondylolisthesis, lumbar region Category: Medical (2) Lumbar degenerative disc disease: Code(s): M51.369 - Other intervertebral disc degeneration, lumbar region without mention of lumbar back pain or lower extremity pain Category: Medical Plan Dear Violette, Thank you for referring Sara to our office today. She is a pleasant 75 year old female who comes in today for evaluation of lower extremity numbness with standing and walking. She has been followed by your office for SI joint dysfunction and had good response from injections. She reports that in April she was moving a large bag of mulch in her yard and felt a sharp pain in her low back. She reports never having low back pain prior to this incident. She also experienced some shooting pain into the posterior aspect of her bilateral lower extremities. As a result of this she sought evaluation by her primary care physician and our colleagues in pain management. She ended up going to physical therapy over the summer and had SI joint injections with Dr. Kramer on 10/10/25. She reports that since her injections she has been completely pain- free in terms of her low back and leg pain. She does utilize the occasional Alleve for mild flare-ups of pain, but feels her pain that was very well treated with her last injection. Unfortunately, since her injection she reports she has experienced numbness in her bilateral lower extremities that starts near her thighs and will travel all the way down to her feet if she continues ambulating. She states this never happened to her before and has only started occurring right after her last injection. I did attempt to discuss this further with her and ask if there was any mild loss of sensation in her lower extremities prior to her last injection and she reports never having any sensation deficits prior to this. She only had low back pain / occasional leg pain that started in April. When sitting down she experiences no numbness/tingling in her lower extremities. Whether she sits down / stands / walks she has no low back pain presently. She denies any issues with bowel/bladder control. She is still able to ambulate independently without any assistive devices. PMH: Osteopenia based on T score of -1.4 in lumbar spine on most recent DEXA 01/18/25. Hx seizure with SAH & IPH in May 2024, HTN w/ white coat HTN, Hyperlipidemia, Anxiety, Vitamin D deficiency. Social hx: Patient does not smoke, reports no substance use. Medications: Amlodipine, atorvastatin, folic acid, sertraline, thiamine. Allergies: NKDA. Physical exam: The patient has about 4/5 strength with right-sided triceps/biceps testing. The rest of her upper and lower extremity strength is 5/5. She ambulates well with a nonantalgic non spastic gait, and rises from a seated position without difficulty. She is able to get up from a seated position without bracing herself on the chair. She uses no assistive devices to ambulate. She reports no sensational deficits to light touch during examination. (-) bilateral straight leg raise, (-) Bejarano's. Imaging review: MRI of the lumbar spine completed here at [facility] shows a grade 1 spondylolisthesis at L3-4, and L4-5. There is severe degenerative disc disease at L3-4, and posterior disc bulging causing moderate- severe bilateral lateral recess stenosis at this level. There is also fairly severe posterior disc bulging at L4-5 causing severe bilateral lateral recess stenosis at this level. X-ray imaging does redemonstrate this listhesis, however the lumbar spine x-rays that she had completed here in July are not dynamic with flexion/extension. Impression: Sara is a pleasant 75-year-old female who comes in today for evaluation of bilateral lower extremity numbness that occurs only with standing and worsens with ambulation. She identifies an inciting incident of this numbness and states that it occurred directly after her last injection. She obtained excellent relief of her low back pain after this injection over 1 month ago, and reports no recurrence of pain since then. When filling out her AKILAH in clinic she rates her constant daily pain as a 0/10. Given that the patient is telling me today that she has been no prior history of hypoesthesia before her injection 1 month ago, it is difficult for me to correlate her symptoms to the listhesis seen on MRI imaging. In addition to this she is not experiencing any back or leg pain. Therefore I do not believe that there is a high utility for neurosurgical intervention. I encouraged her to keep a close eye on her symptoms for any worsening of numbness over the next couple of months, and to return for evaluation if her numbness worsens or her back pain returns. I did discuss with her that typically in cases such as hers, if the patient is symptomatic with pain, and if the numbness/tingling in the legs persists outside of the realm of a recent inciting incident such as an injection, we would typically offer lumbar fusion to bring her vertebral bodies back into alignment and decompress the nerves. If this numbness that occurs with standing/walking persists I would recommend obtaining a set of dynamic lumbar spine x-rays to ensure there is no significantly worsening listhesis with flexion / extension. On plain lateral standing films I do not see this worsening. Thank you for allowing us to care for your patient. The total time spent with this visit with this patient was 45 minutes reviewing history, physical exam, MRI & X-ray imaging review, and implementation of treatment plan or further diagnostic testing Catarino Escobar MD,PhD [facility] Coding Level of Care Code New Pt Level 4 (35600) Diagnoses Spondylolisthesis, lumbar region M43.16 Lumbar degenerative disc disease M51.369
[2025-11-13 09:34] VITALS: BMI 25.6
== END 2025-11-13 09:54 | disposition home or self-care (01) ==
LOC: HO.HNS 09:23
PROVIDERS: PCP Internal Medicine; Referring Provider Nurse Practitioner Family; Visit Provider Physician Assistant
DX: M43.16 Spondylolisthesis, lumbar region (principal); M51.369 Other intervertebral disc degeneration, lumbar region without mention of lumbar back pain or lower extremity pain
CPT/HCPCS: 99204

== ENCOUNTER → 2025-11-13 09:22 | Outpatient (BNVA) | payer MEDICARE, SELFPAY | PROVIDERS: PCP Internal Medicine; Referring Provider Nurse Practitioner Family; Visit Provider Physician Assistant | DX: M43.16 Spondylolisthesis, lumbar region (principal); M51.369 Other intervertebral disc degeneration, lumbar region without mention of lumbar back pain or lower extremity pain | CPT/HCPCS: 99202 ==

== ENCOUNTER → 2025-11-16 11:56 | Outpatient (BNVA) | payer MEDICARE, SELFPAY | PROVIDERS: PCP Internal Medicine | DX: I10 Essential (primary) hypertension (principal); Z01.31 Encounter for examination of blood pressure with abnormal findings | CPT/HCPCS: 99211; 99212 ==

== ENCOUNTER 2025-11-16 12:30 | Outpatient (AMB) | payer MEDICARE, SELFPAY ==
[2025-11-16 12:33] VITALS: BP 140/84; PULSE 80; O2SAT 96; BMI 27.4
--- NOTE | 2025-11-16 12:33 | A.OFFPC_ITS ---
Vital Signs 11/16/25 12:33 Height 5 ft 2 in Weight 150 lb BMI 27.4 BP 140/84 H Blood Pressure Location Lt brachial Position Sitting Pulse 80 Pulse Source Pulse Oximeter Pulse Oximetry (%) 96 Oxygen Delivery Method Room Air Intake Visit Reasons: Heart rate issue Intake Note: Pt is here today for a follow up visit on elevated BP. Allergies No Known Allergies Allergy (Verified 11/16/25 12:57) Medication List - Last Reconciled 11/16/25 by Kami Hicks MD amlodipine-benazepril 10-40 mg 1 cap PO DAILY atorvastatin 40 mg PO DAILY blood pressure test kit-medium As directed folic acid 1 mg PO DAILY sertraline 50 mg PO DAILY thiamine HCl (vitamin B1) 100 mg PO DAILY Tobacco use date assessed: 08/02/25 Dental Screening Dental Screen Date: 08/02/25 HPI Heart rate issue HPI Details Patient presents for follow-up. She has been getting cortisone injections for lumbar spinal stenosis and was noted to have elevated blood pressure readings during her visits. Patient denies chest pain shortness or breath headaches. She has been compliant taking amlodipine with benazepril regularly [facility] Medical History Lumbar scoliosis Seizure Intraparenchymal hemorrhage of brain Subarachnoid hemorrhage Chronic SI joint pain Lumbar back pain Osteopenia Anxiety Vitamin D deficiency Annual physical exam Normal Pap smear Hyperlipemia HTN (hypertension) Surgical History H/O colonoscopy Family History Father No problems noted. Mother No problems noted. Social History Housing: House Alcohol intake: current Alcohol intake frequency: a few times a week Patient Tobacco Use Status: Never used Tobacco e-Cigarette/Vaping Use: Never Used Second Hand Smoke Exposure: No service: No Current occupational status: employed Current occupation: Caterer Current occupational exposures/hazards: No Cognitive needs: No Hearing needs: No Vision needs: No Questionnaire Thrive Questionnaire Date Thrive assessed: 07/27/25 I am a: Patient What is your living situation today?: I have a steady place to live Within the past 12 months, did the food you bought not last and you didn't have the money to get more?: Never true Within the past 12 months, did you worry whether your food would run out before you got money to buy more?: Never true Do you have trouble paying for medicines?: No Do you have trouble getting transportation to medical appointments?: No Do you have trouble paying your heating and electricity bill?: No Do you have trouble taking care of your child, family member or friend?: No Do you have trouble with day-to-day activities such as bathing, preparing meals, shopping, managing finances, etc.?: No Are you currently unemployed and looking for a job?: No Are you interested in more education?: No Please select the resources that you would like help with: None Currently or been in a relationship where the following occur: No concerns r eported THRIVE Score: 0 GEOVANNI-7 AMB Questionnaire GEOVANNI-7 Date GEOVANNI - 7 assessed: 08/02/25 Source: Developed by Drs. Avila Gerber, Katie Farias, Fazal Mcfadden and colleagues, with an educational bonnie from [employer]. Review of Systems Const All systems reviewed & are unremarkable except as noted in HPI and below ENT Reports no additional complaints Card Reports no additional complaints Resp Reports no additional complaints GI Reports no additional complaints Reports no additional complaints Physical exam (Primary Care) Vital Signs: Last Vital Signs Pulse 80 11/16/25 12:33 BP 140/84 H 11/16/25 12:33 Pulse Ox 96 11/16/25 12:33 Oxygen Delivery Method Room Air 11/16/25 12:33 BMI result Body Mass Index 27.4 Tobacco/Smoking Status: Tobacco use Status Tobacco use date assessed 08/02/25 11/16/25 12:35 Patient Tobacco Use Status Never used Tobacco 11/16/25 12:35 e-Cigarette/Vaping Use Never Used 11/16/25 12:35 Thrive Assessment: Date of Thrive Assessment Date Thrive assessed 07/27/25 11/16/25 12:35 Currently or been in a relationship where the following occur: No concerns reported Const General: no acute distress HENMT Head: Yes normal to inspection Throat: Yes posterior oropharynx normal Neck Neck: Yes supple Resp Effort & Inspection: normal respiratory effort Auscultation: clear to auscultation bilaterally Cardio Rhythm: regular rhythm Heart sounds: S1 normal heart sound present and S2 normal heart sound present Coding Level of Care Code Est Pt Level 3 (77645) Diagnoses HTN (hypertension) I10 Hyperlipemia E78.5 Assessment & Plan Assessment & Plan (1) HTN (hypertension): Code(s): I10 - Essential (primary) hypertension Category: Medical Plan: EKG showed normal sinus rhythm no ST-T changes. Add hydrochlorothiazide 12.5 mg daily to amlodipine/ benazepril. Follow-up in 1 month (2) Hyperlipemia: Code(s): E78.5 - Hyperlipidemia, unspecified Category: Medical Plan: Continue statin Medications: New hydrochlorothiazide 12.5 mg PO DAILY 90 tabs 3RF
== END 2025-11-16 13:17 | disposition home or self-care (01) ==
PROVIDERS: PCP Internal Medicine; Visit Provider Internal Medicine
DX: I10 Essential (primary) hypertension (principal); E78.5 Hyperlipidemia, unspecified